=== PATIENT | male | born 1945 | race American Indian/Alaskan Native ===

== ENCOUNTER 2016-03-21 19:08 | Emergency (ER) | payer MEDICARE, OTHER ==
[2016-03-21 20:53] LABS: Bacteria,Urine 1+ /HPF (Negative); Bilirubin,Urine NEG (Negative); Blood,Urine MOD (Negative); Ketones,Urine NEG (Negative); Leukocyte Esterase,Urine NEG (Negative); Mucus,Urine FEW /HPF; Nitrite,Urine NEG (Negative); WBC,Urine < 1.0 /HPF (0.0-6.0)
[2016-03-21 21:00] LABS: Basophils % (Auto) 0.6 % (0.0-1.8); Eosinophils % (Auto) 0.3 % (0.0-4.3); Hematocrit 40.5 % (35.5-45.6); Hemoglobin 13.6 gm/dl (11.8-15.2); Mean Corpuscular HGB Conc 34 % (32-34); Mean Corpuscular Hemoglobin 30 pg (28-32); Mean Corpuscular Volume 89 fl (84-94); Platelet Count 182 K/mm3 (140-440); Red Blood Count 4.54 M/mm3 (3.65-5.03); Red Cell Distribution Width 13.5 % (13.2-15.2); White Blood Count 9.6 K/mm3 (4.5-11.0)
[2016-03-21 21:20] LABS: Anion Gap 15 mmol/L; BUN/Creatinine Ratio 12.85; Blood Urea Nitrogen 18 mg/dL (9-20); Carbon Dioxide 29 mmol/L (22-30); Chloride 96.3 mmol/L (98-107); Glucose 114 mg/dL (75-100); Potassium 4.4 mmol/L (3.6-5.0); Sodium 136 mmol/L (137-145)
[2016-03-21 21:58] LABS: Creatine Kinase MB < 1.0 ng/mL (0.0-4.0)
[2016-03-21 21:59] LABS: Alanine Aminotransferase 9 units/L (7-56); Albumin 3.8 g/dL (3.9-5); Albumin/Globulin Ratio 1.5 %; Alkaline Phosphatase 61 units/L (35-129); Bilirubin,Total 0.4 mg/dL (0.1-1.2); Creatine Kinase 117 units/L (55-170); Total Protein 6.3 g/dL (6.3-8.2)
[2016-03-21 22:02] LABS: Bilirubin,Direct < 0.2 mg/dL (0-0.2); Bilirubin,Indirect 0.2 mg/dL
--- NOTE | 2016-03-22 01:12 | Emergency Department Report ---
- General Chief complaint: Weakness Stated complaint: WEAKNESS Source: patient Mode of arrival: Stretcher Limitations: No Limitations - History of Present Illness Initial comments: 71-year-old male with past medical history of CABG, hypertension, dementia, seizures presents to the hospital complains of generalized weakness feeling today. Patient was at a dinner at his adult daycare center when he was too weak to stand up. Patient states he had weakness to bilateral legs. EMS reported a fever 102 prior to arrival however patient's temp 99.6 here without any medical intervention in route. Patient complained of sore throat today. Occasional dysuria reported. No reports of cough, chest pain, shortness of breath, nausea, vomiting, diarrhea, melena, focal numbness/weakness, or decreased by mouth intake. Patient does state he has been suffering from constipation intermittently. Pain free and at baseline Severity scale (0 -10): 0 - Related Data Home Medications Medication Instructions Recorded Confirmed Last Taken Aspirin [Aspirin BABY CHEW TAB] 81 mg PO QDAY 12/29/13 03/21/16 1 Day Ago 81 Atorvastatin [Lipitor] 80 mg PO QHS 12/29/13 03/21/16 1 Day Ago 80 Clopidogrel [Plavix] 75 mg PO QDAY 12/29/13 03/21/16 1 Day Ago [address] [Gilmar Heck] 1 gm PO DAILY 12/29/13 03/21/16 1 Day Ago 1 Ezetimibe [Zetia] 10 mg PO QDAY 12/29/13 03/21/16 1 Day Ago 10 amLODIPine [Norvasc] 10 mg PO DAILY 12/29/13 03/21/16 1 Day Ago 10 ISOSORBIDE MONOnitrate [Imdur ER] 60 mg PO QDAY 01/22/15 03/21/16 1 Day Ago 60 Lisinopril [Zestril TAB] 10 mg PO QDAY 01/22/15 03/21/16 1 Day Ago 10 Metoprolol [Lopressor TAB] 25 mg PO QDAY 01/22/15 03/21/16 1 Day Ago 25 Tamsulosin [Flomax] 0.4 mg PO QDAY 01/22/15 03/21/16 1 Day Ago 0.4 levETIRAcetam [Keppra TAB] 500 mg PO BID 01/22/15 03/21/16 1 Day Ago 500 Finasteride [Proscar] 5 mg PO QDAY 03/21/16 03/21/16 1 Day Ago 5 Allergies Allergy/AdvReac Type Severity Reaction Status Date / Time No Known Allergies Allergy Verified 03/11/14 15:43 ED Review of Systems ROS: Stated complaint: WEAKNESS Other details as noted in HPI Comment: All other systems reviewed and negative Other: Constitutional: + fever Eyes: Legally blind ENT: As per HPI Neck: Denies pain Respiratory: Denies cough wheezing shortness of breath Cardiovascular: Denies chest pain, palpitations, syncope GI: Denies abdominal pain, nausea, vomiting, diarrhea, : occ dysuria Musculoskeletal: Denies back pain Skin: Denies rash, lesions, erythema Neurologic: Denies headache ED Past Medical Hx - Past Medical History Previous Medical History?: Yes Hx Hypertension: Yes Hx Seizures: Yes (negative EEG per stepson) Hx Psychiatric Treatment: Yes (depression) Additional medical history: cad, high cholesterol, hearing loss, dementia. Enlarged prostate. 4 - Surgical History Hx Open Heart Surgery: Yes Additional Surgical History: eye surgery - Social History Smoking Status: Never Smoker Substance Use Type: None - Medications Home Medications: Home Medications Medication Instructions Recorded Confirmed Last Taken Type Aspirin [Aspirin BABY CHEW TAB] 81 mg PO QDAY 12/29/13 03/21/16 1 Day Ago History 81 Atorvastatin [Lipitor] 80 mg PO QHS 12/29/13 03/21/16 1 Day Ago History 80 Clopidogrel [Plavix] 75 mg PO QDAY 12/29/13 03/21/16 1 Day Ago History 75 Divalproex [Gilmar Heck] 1 gm PO DAILY 12/29/13 03/21/16 1 Day Ago History 1 Ezetimibe [Zetia] 10 mg PO QDAY 12/29/13 03/21/16 1 Day Ago History 10 amLODIPine [Norvasc] 10 mg PO DAILY 12/29/13 03/21/16 1 Day Ago History 10 ISOSORBIDE MONOnitrate [Imdur ER] 60 mg PO QDAY 01/22/15 03/21/16 1 Day Ago History 60 Lisinopril [Zestril TAB] 10 mg PO QDAY 01/22/15 03/21/16 1 Day Ago History 10 Metoprolol [Lopressor TAB] 25 mg PO QDAY 01/22/15 03/21/16 1 Day Ago History 25 Tamsulosin [Flomax] 0.4 mg PO QDAY 01/22/15 03/21/16 1 Day Ago History 0.4 levETIRAcetam [Keppra TAB] 500 mg PO BID 01/22/15 03/21/16 1 Day Ago History 500 Finasteride [Proscar] 5 mg PO QDAY 03/21/16 03/21/16 1 Day Ago History 5 ED Physical Exam - General Limitations: No Limitations - Other Other exam information: General: No limitations, patient is alert in no acute distress Head exam: Atraumatic, normocephalic ENT: Mildly or exudate at the right upper tonsil area without edema. Uvula midline Neck exam: Normal inspection, full range of motion, no meningismus nontender Respiratory exam: Clear to auscultation bilateral, no wheezes, rales, crackles Cardiovascular: Normal rate and rhythm Abdomen: Soft, nondistended, and nontender, with normal bowel sounds, no rebound, or guarding Extremity: Full range of motion normal inspection no deformity Back: Normal Inspection, full range of motion, no tenderness Neurologic: Alert, cranial nerves intact, no motor or sensory deficit. Psychiatric: normal affect, normal mood Skin: Warm, dry, intact ED Course Vital Signs 03/21/16 03/21/16 03/21/16 20:04 20:26 22:11 Temperature 99.6 F Pulse Rate 99 H 95 H 80 Respiratory 18 18 18 Rate Blood Pressure 125/74 Blood Pressure 125/74 145/85 135/80 [Left] O2 Sat by Pulse 97 97 97 Oximetry 03/22/16 00:57 Temperature Pulse Rate 88 Respiratory 16 Rate Blood Pressure Blood Pressure 138/78 [Left] O2 Sat by Pulse 99 Oximetry - Reevaluation(s) Reevaluation #1: 03/22/16 01:15 Patient was able to ambulate in the ED and he reports feeling much better 03/22/16 01:15 ED Medical Decision Making - Lab Data Result diagrams: 03/21/16 20:34 03/21/16 20:34 Lab Results 03/21/16 03/21/16 03/21/16 Range/Units 20:34 20:34 20:37 WBC 9.6 (4.5-11.0) K/mm3 RBC 4.54 (3.65-5.03) M/mm3 Hgb 13.6 (11.8-15.2) gm/dl Hct 40.5 (35.5-45.6) % MCV 89 (84-94) fl MCH 30 (28-32) pg MCHC 34 (32-34) % RDW 13.5 (13.2-15.2) % Plt Count 182 (140-440) K/mm3 Lymph % (Auto) 9.3 L (13.4-35.0) % [place] % (Auto) 10.9 H (0.0-7.3) % Eos % (Auto) 0.3 (0.0-4.3) % Baso % (Auto) 0.6 (0.0-1.8) % Lymph # 0.9 L (1.2-5.4) K/mm3 [place] # 1.0 H (0.0-0.8) K/mm3 Eos # 0.0 (0.0-0.4) K/mm3 Baso # 0.1 (0.0-0.1) K/mm3 Seg Neutrophils % 78.9 H (40.0-70.0) % Seg Neutrophils # 7.6 (1.8-7.7) K/mm3 Sodium 136 L (137-145) mmol/L Potassium 4.4 (3.6-5.0) mmol/L Chloride 96.3 L (98-107) mmol/L Carbon Dioxide 29 (22-30) mmol/L Anion Gap 15 mmol/L BUN 18 (9-20) mg/dL Creatinine 1.4 (0.8-1.5) mg/dL Estimated GFR > 60 ml/min BUN/Creatinine Ratio 12.85 % Glucose 114 H (75-100) mg/dL Calcium 9.0 (8.4-10.2) mg/dL Magnesium (1.7-2.3) mg/dL Total Bilirubin (0.1-1.2) mg/dL Direct Bilirubin (0-0.2) mg/dL Indirect Bilirubin mg/dL AST (5-40) units/L ALT (7-56) units/L Alkaline Phosphatase (35-129) units/L Total Creatine Kinase (55-170) units/L CK-MB (CK-2) (0.0-4.0) ng/mL CK-MB (CK-2) Rel Index (0-4) Troponin T (0.00-0.029) ng/mL Total Protein (6.3-8.2) g/dL Albumin (3.9-5) g/dL Albumin/Globulin Ratio % TSH (0.270-4.200) mlU/mL Free T4 (0.76-1.46) ng/dL Urine Color Yellow (Yellow) Urine Turbidity Clear (Clear) Urine pH 7.0 (5.0-7.0) Ur Specific Josephine 1.019 (1.003-1.030) Urine Protein 30 mg/dl (Negative) mg/dL Urine Glucose (UA) Neg (Negative) mg/dL Urine Ketones Neg (Negative) mg/dL Urine Blood Mod (Negative) Urine Nitrite Neg (Negative) Urine Bilirubin Neg (Negative) Urine Urobilinogen 4.0 (<2.0) mg/dL Ur Leukocyte Esterase Neg (Negative) Urine WBC (Auto) < 1.0 (0.0-6.0) /HPF Urine RBC (Auto) 49.0 (0.0-6.0) /HPF U Epithel Cells (Auto) 1.0 (0-13.0) /HPF Urine Bacteria (Auto) 1+ (Negative) /HPF Hyaline Casts 1 /LPF Urine Mucus Few /HPF 03/21/16 03/21/16 03/21/16 Range/Units 21:23 21:29 21:29 WBC (4.5-11.0) K/mm3 RBC (3.65-5.03) M/mm3 Hgb (11.8-15.2) gm/dl Hct (35.5-45.6) % MCV (84-94) fl MCH (28-32) pg MCHC (32-34) % RDW (13.2-15.2) % Plt Count (140-440) K/mm3 Lymph % (Auto) (13.4-35.0) % [place] % (Auto) (0.0-7.3) % Eos % (Auto) (0.0-4.3) % Baso % (Auto) (0.0-1.8) % Lymph # (1.2-5.4) K/mm3 [place] # (0.0-0.8) K/mm3 Eos # (0.0-0.4) K/mm3 Baso # (0.0-0.1) K/mm3 Seg Neutrophils % (40.0-70.0) % Seg Neutrophils # (1.8-7.7) K/mm3 Sodium (137-145) mmol/L Potassium (3.6-5.0) mmol/L Chloride (98-107) mmol/L Carbon Dioxide (22-30) mmol/L Anion Gap mmol/L BUN (9-20) mg/dL Creatinine (0.8-1.5) mg/dL Estimated GFR ml/min BUN/Creatinine Ratio % Glucose (75-100) mg/dL Calcium (8.4-10.2) mg/dL Magnesium 1.8 (1.7-2.3) mg/dL Total Bilirubin 0.4 (0.1-1.2) mg/dL Direct Bilirubin < 0.2 (0-0.2) mg/dL Indirect Bilirubin 0.2 mg/dL AST 16 (5-40) units/L ALT 9 (7-56) units/L Alkaline Phosphatase 61 (35-129) units/L Total Creatine Kinase (55-170) units/L CK-MB (CK-2) (0.0-4.0) ng/mL CK-MB (CK-2) Rel Index (0-4) Troponin T (0.00-0.029) ng/mL Total Protein 6.3 (6.3-8.2) g/dL Albumin 3.8 L (3.9-5) g/dL Albumin/Globulin Ratio 1.5 % TSH 1.160 (0.270-4.200) mlU/mL Free T4 1.02 (0.76-1.46) ng/dL Urine Color (Yellow) Urine Turbidity (Clear) Urine pH (5.0-7.0) Ur Specific Josephine (1.003-1.030) Urine Protein (Negative) mg/dL Urine Glucose (UA) (Negative) mg/dL Urine Ketones (Negative) mg/dL Urine Blood (Negative) Urine Nitrite (Negative) Urine Bilirubin (Negative) Urine Urobilinogen (<2.0) mg/dL Ur Leukocyte Esterase (Negative) Urine WBC (Auto) (0.0-6.0) /HPF Urine RBC (Auto) (0.0-6.0) /HPF U Epithel Cells (Auto) (0-13.0) /HPF Urine Bacteria (Auto) (Negative) /HPF Hyaline Casts /LPF Urine Mucus /HPF 03/21/16 Range/Units 21:29 WBC (4.5-11.0) K/mm3 RBC (3.65-5.03) M/mm3 Hgb (11.8-15.2) gm/dl Hct (35.5-45.6) % MCV (84-94) fl MCH (28-32) pg MCHC (32-34) % RDW (13.2-15.2) % Plt Count (140-440) K/mm3 Lymph % (Auto) (13.4-35.0) % [place] % (Auto) (0.0-7.3) % Eos % (Auto) (0.0-4.3) % Baso % (Auto) (0.0-1.8) % Lymph # (1.2-5.4) K/mm3 [place] # (0.0-0.8) K/mm3 Eos # (0.0-0.4) K/mm3 Baso # (0.0-0.1) K/mm3 Seg Neutrophils % (40.0-70.0) % Seg Neutrophils # (1.8-7.7) K/mm3 Sodium (137-145) mmol/L Potassium (3.6-5.0) mmol/L Chloride (98-107) mmol/L Carbon Dioxide (22-30) mmol/L Anion Gap mmol/L BUN (9-20) mg/dL Creatinine (0.8-1.5) mg/dL Estimated GFR ml/min BUN/Creatinine Ratio % Glucose (75-100) mg/dL Calcium (8.4-10.2) mg/dL Magnesium (1.7-2.3) mg/dL Total Bilirubin (0.1-1.2) mg/dL Direct Bilirubin (0-0.2) mg/dL Indirect Bilirubin mg/dL AST (5-40) units/L ALT (7-56) units/L Alkaline Phosphatase (35-129) units/L Total Creatine Kinase 117 (55-170) units/L CK-MB (CK-2) < 1.0 (0.0-4.0) ng/mL CK-MB (CK-2) Rel Index 0.8 (0-4) Troponin T < 0.010 (0.00-0.029) ng/mL Total Protein (6.3-8.2) g/dL Albumin (3.9-5) g/dL Albumin/Globulin Ratio % TSH (0.270-4.200) mlU/mL Free T4 (0.76-1.46) ng/dL Urine Color (Yellow) Urine Turbidity (Clear) Urine pH (5.0-7.0) Ur Specific Josephine (1.003-1.030) Urine Protein (Negative) mg/dL Urine Glucose (UA) (Negative) mg/dL Urine Ketones (Negative) mg/dL Urine Blood (Negative) Urine Nitrite (Negative) Urine Bilirubin (Negative) Urine Urobilinogen (<2.0) mg/dL Ur Leukocyte Esterase (Negative) Urine WBC (Auto) (0.0-6.0) /HPF Urine RBC (Auto) (0.0-6.0) /HPF U Epithel Cells (Auto) (0-13.0) /HPF Urine Bacteria (Auto) (Negative) /HPF Hyaline Casts /LPF Urine Mucus /HPF flu neg strep neg - EKG Data -: EKG Interpreted by Me (nsr rate 78, nonspecific t abnl) - EKG Data When compared to previous EKG there are: no significant change (compared to ) - Radiology Data Radiology results: image reviewed (cxr:no acute findings) - Medical Decision Making Stable in the ED and reports feeling better. No focal neurologic deficit no signs of infection with normal lab work, EKG, and cardiac enzymes. Patient tolerated ambulation in the ED this at his baseline. He was provided Keppra 500 mg since he takes at home and missed his evening dose while being in the ED to prevent seizure activity. Patient we discharged home. Awaiting his daughter 's arrival. She plans to come about 5:30. Case was discussed with her and she is comfortable with the plan to take him home and will continue to monitor. - Differential Diagnosis uti, pneumonia, viral syndrome, dehydration, anemia Critical Care Time: No Critical care attestation.: If time is entered above; I have spent that time in minutes in the direct care of this critically ill patient, excluding procedure time. ED Disposition Clinical Impression: Dementia, Weakness Disposition: DISCHARGED TO HOME OR SELFCARE Is pt being admited?: No Does the pt Need Aspirin: No Condition: Stable Instructions: Weakness (ED) Additional Instructions: Continue your current meds. Return if symptoms worsen. Follow up with your doctor Referrals: PRIMARY CARE, [Primary Care Provider] - 2-3 Days Time of Disposition: 01:37
[2016-03-22] MEDS ORDERED: KEPPRA PO ONE (01:21)
[2016-03-22 05:27] VITALS: BP 146/91
--- NOTE | 2016-03-22 09:47 | XRay Report ---
PORTABLE CHEST: INDICATION: Fever. COMPARISON: 12/29/2013 FINDINGS: Portable, frontal chest radiograph demonstrates stable cardiomediastinal silhouette, mild aortic knob calcifications, post CABG changes, clear lungs and demineralized bones with few degenerative changes. EKG leads. CONCLUSION: No acute disease, stable. Thank you for the opportunity to participate in this patient's care.
== END 2016-03-22 01:38 | disposition home or self-care (01) ==
LOC: ED 19:08
DX: R53.1 Weakness (principal); F03.90 Unspecified dementia, unspecified severity, without behavioral disturbance, psychotic disturbance, mood disturbance, and anxiety; I10 Essential (primary) hypertension; E78.00 Pure hypercholesterolemia, unspecified
CPT/HCPCS: 36415; 71010; 80048; 80074; 81001; 82550; 82553; 83735; 84439; 84443; 84484; 85025; 87116; 87400; 87430; 93005; 93010

== ENCOUNTER 2020-10-15 22:48 | Inpatient (IN) | payer OTHER, MEDICARE ==
[2020-10-15] MEDS ORDERED: dexAMETHasone 4 MG/ML VIAL IV ONE (23:23)
--- NOTE | 2020-10-15 23:25 | Event Note ---
Date: 10/15/20 The patient was evaluated in the emergency department for symptoms described in the history of present illness. He/she was evaluated in the context of the global COVID-19 pandemic, which necessitated consideration that the patient might be at risk for infection with the virus that causes COVID-19. Institutional protocols and algorithms that pertain to the evaluation of patients at risk for COVID-19 are in a state of rapid change based on information released by regulatory bodies including the CDC and federal and state organizations. These policies and algorithms were followed during the patient's care in the emergency department. Please note that these policies, procedures and recommendations changed on a rapid basis. EMS documentation not available at time of chart dictation This is a 75-year-old gentleman presenting with symptomatic Covid. He complains of cough, weakness, shortness of breath. He is not vaccinated. Apparently, he is a [facility] patient. He was given trial of ambulation, became very symptomatic, O2 sat desaturated to 67%, and became very tachycardic, with a heart rate of 122 bpm. We will contact [facility]. Place patient in isolation, order appropriate Covid labs, steroids, this patient will require admission for symptomatic Covid and acute hypoxic respiratory failure. Discussed with [facility] physician, Dr. Morales. He advises this patient had a positive Covid test yesterday. He advises that this patient has authorization to be admitted to this hospital.
--- NOTE | 2020-10-15 23:53 | XRay Report ---
CHEST 1 VIEW 10/15/2020 10:44 PM INDICATION / CLINICAL INFORMATION: Dyspnea. COMPARISON: None available. FINDINGS: SUPPORT DEVICES: None. HEART / MEDIASTINUM: No significant abnormality. LUNGS / PLEURA: Mild increased interstitial prominence and opacities in the lower lungs No pneumothor ax. Signer Name: Rolly Stout MD Signed: 10/15/2020 11:48 PM Workstation Name: [id number]
[2020-10-15 23:54] LABS: Basophils % (Auto) 0.4 % (0.0-1.8); Hemoglobin 15.8 gm/dl (11.8-15.2); Lymphocytes # (Auto) 0.5 K/mm3 (1.2-5.4); Lymphocytes % (Auto) 7.4 % (13.4-35.0); Mean Corpuscular HGB Conc 34 % (32-34); Mean Corpuscular Volume 89 fl (84-94); Monocytes # (Auto) 0.8 K/mm3 (0.0-0.8); Monocytes % (Auto) 13.4 % (0.0-7.3); Platelet Count 198 K/mm3 (140-440); Red Blood Count 5.17 M/mm3 (3.65-5.03); Red Cell Distribution Width 13.7 % (13.2-15.2)
[2020-10-16 00:04] LABS: INR 1.02 (0.87-1.13)
[2020-10-16 00:05] LABS: Partial Thromboplastin Time 33.7 Sec. (24.2-36.6)
[2020-10-16 00:11] LABS: Albumin 4.3 g/dL (3.9-5); Calcium 9.2 mg/dL (8.4-10.2)
[2020-10-16] MEDS ORDERED: cefTRIAXone/NS 1 GM/50 ML 1 GM/50 ML BAG IV ONE ×2 (00:15→03:15)
[2020-10-16] MEDS ORDERED: SODIUM CHLORIDE 0.9% 500 ML 500 ML IV ONE ×2 (00:15→03:15)
[2020-10-16] MEDS ORDERED: AZITHROMYCIN/NS 500 MG/250 ML 500 MG/250 ML BAG IV ONE (00:15)
--- NOTE | 2020-10-16 00:17 | Emergency Department Report ---
ED General Adult HPI - General Chief complaint: Weakness Stated complaint: WEAKNESS PUI?: Yes Source: patient, EMS (Verbal report received from emergency medical services. EMS documentation not available at time of chart dictation ), RN notes reviewed, old records reviewed Mode of arrival: Stretcher Limitations: Physical Limitation - History of Present Illness Initial comments: The patient was evaluated in the emergency department for symptoms described in the history of present illness. He/she was evaluated in the context of the global COVID-19 pandemic, which necessitated consideration that the patient might be at risk for infection with the virus that causes COVID-19. Institutional protocols and algorithms that pertain to the evaluation of patients at risk for COVID-19 are in a state of rapid change based on information released by regulatory bodies including the CDC and federal and state organizations. These policies and algorithms were followed during the patient's care in the emergency department. Please note that these policies, procedures and recommendations changed on a rapid basis. Primary CARE doctor: [facility]. The patient is a 75-year-old gentleman, who is not vaccinated against COVID-19, who tested positive for COVID-19 at an outpatient [place] facility, with other past medical history including seizure, hypertension, dementia, and CAD. He is referred to the emergency room by [facility] because of symptomatic Covid. The patient complains of weakness, shortness of breath, malaise, fatigue, body aches. The patient ambulates with a walker and with a cane. He also endorses dysuria. He reports significant weakness, and difficulty ambulating without assistance. EMS reports to myself that the patient is hypoxic in the field, requiring 3 L of supplemental oxygen, with a normal Accu-Chek, and they also endorse that the patient has a blood pressure of 170 systolic. Patient and EMS tell me that symptoms have been going on for the past couple days. -: Gradual, days(s) Consistency: constant Improves with: rest Worsens with: movement - Related Data Home Medications Medication Instructions Recorded Confirmed Last Taken Aspirin [Aspirin BABY CHEW TAB] 81 mg PO QDAY 12/29/13 03/21/16 1 Day Ago ~03/20/16 81 Atorvastatin [Lipitor] 80 mg PO QHS 12/29/13 03/21/16 1 Day Ago ~03/20/16 80 Clopidogrel [Plavix] 75 mg PO QDAY 12/29/13 03/21/16 1 Day Ago ~03/20/16 75 Divalproex [Gilmar Heck] 1 gm PO DAILY 12/29/13 03/21/16 1 Day Ago ~03/20/16 1 Ezetimibe [Zetia] 10 mg PO QDAY 12/29/13 03/21/16 1 Day Ago ~03/20/16 10 amLODIPine 10 mg PO DAILY 12/29/13 03/21/16 1 Day Ago ~03/20/16 10 ISOSORBIDE MONOnitrate [Imdur ER] 60 mg PO QDAY 01/22/15 03/21/16 1 Day Ago ~03/20/16 60 Metoprolol [Lopressor TAB] 25 mg PO QDAY 01/22/15 03/21/16 1 Day Ago ~03/20/16 25 Tamsulosin [Flomax] 0.4 mg PO QDAY 01/22/15 03/21/16 1 Day Ago ~03/20/16 0.4 levETIRAcetam [Keppra TAB] 500 mg PO BID 01/22/15 03/21/16 1 Day Ago ~03/20/16 500 lisinopriL [Zestril TAB] 10 mg PO QDAY 01/22/15 03/21/16 1 Day Ago ~03/20/16 10 Finasteride [Proscar] 5 mg PO QDAY 03/21/16 03/21/16 1 Day Ago ~03/20/16 5 Allergies Allergy/AdvReac Type Severity Reaction Status Date / Time No Known Allergies Allergy Verified 03/11/14 15:43 ED Review of Systems ROS: Stated complaint: WEAKNESS Other details as noted in HPI Constitutional: malaise, weakness Eyes: denies: eye discharge ENT: congestion Respiratory: cough, shortness of breath, SOB with exertion, SOB at rest Cardiovascular: denies: chest pain Gastrointestinal: denies: abdominal pain Genitourinary: dysuria Musculoskeletal: arthralgia, myalgia Neurological: weakness ED Past Medical Hx - Past Medical History Hx Hypertension: Yes Hx Seizures: Yes (negative EEG per stepson) Hx Psychiatric Treatment: Yes (depression) Additional medical history: cad, high cholesterol, hearing loss, dementia. Enlarged prostate. 4 - Surgical History Hx Open Heart Surgery: Yes Additional Surgical History: eye surgery - Social History Smoking Status: Never Smoker Substance Use Type: None - Medications Home Medications: Home Medications Medication Instructions Recorded Confirmed Last Taken Type Aspirin [Aspirin BABY CHEW TAB] 81 mg PO QDAY 12/29/13 03/21/16 1 Day Ago History ~03/20/16 81 Atorvastatin [Lipitor] 80 mg PO QHS 12/29/13 03/21/16 1 Day Ago History ~03/20/16 80 Clopidogrel [Plavix] 75 mg PO QDAY 12/29/13 03/21/16 1 Day Ago History ~03/20/16 75 Divalproex [Depakojeri Dr] 1 gm PO DAILY 12/29/13 03/21/16 1 Day Ago History ~03/20/16 1 Ezetimibe [Zetia] 10 mg PO QDAY 12/29/13 03/21/16 1 Day Ago History ~03/20/16 10 amLODIPine 10 mg PO DAILY 12/29/13 03/21/16 1 Day Ago History ~03/20/16 10 ISOSORBIDE MONOnitrate [Imdur ER] 60 mg PO QDAY 01/22/15 03/21/16 1 Day Ago History ~03/20/16 60 Metoprolol [Lopressor TAB] 25 mg PO QDAY 01/22/15 03/21/16 1 Day Ago History ~03/20/16 25 Tamsulosin [Flomax] 0.4 mg PO QDAY 01/22/15 03/21/16 1 Day Ago History ~03/20/16 0.4 levETIRAcetam [Keppra TAB] 500 mg PO BID 01/22/15 03/21/16 1 Day Ago History ~03/20/16 500 lisinopriL [Zestril TAB] 10 mg PO QDAY 01/22/15 03/21/16 1 Day Ago History ~03/20/16 10 Finasteride [Proscar] 5 mg PO QDAY 03/21/16 03/21/16 1 Day Ago History ~03/20/16 5 ED Physical Exam - General Limitations: Physical Limitation General appearance: alert - Head Head exam: Present: atraumatic, normocephalic - Eye Eye exam: Present: normal appearance - ENT ENT exam: Present: normal exam, mucous membranes moist, normal external ear exam - Neck Neck exam: Present: normal inspection, full ROM - Respiratory Respiratory exam: Present: respiratory distress, other (Pulmonary auscultation not performed secondary to lack of disposable stethoscope). Absent: stridor - Cardiovascular Cardiovascular Exam: Present: other (Cardiac auscultation not performed secondary to lack of disposable stethoscope) - Rectal Rectal exam: Present: deferred - Extremities Exam Extremities exam: Present: normal inspection, full ROM - Back Exam Back exam: Present: full ROM - Neurological Exam Neurological exam: Present: alert (The patient is awake and alert to name and location.), abnormal gait (The patient walks with an unsteady gait, and requires a 1 person assist), other (There is no facial droop. EOMI. Tongue midline. Moves 4 extremities spontaneously.) - Psychiatric Psychiatric exam: Present: flat affect - Skin Skin exam: Present: normal color ED Course Vital Signs 10/16/20 10/16/20 10/16/20 03:30 03:35 04:40 Temperature 100.0 F H Pulse Rate 84 Respiratory 24 24 Rate Blood Pressure Blood Pressure 122/88 [Left] O2 Sat by Pulse 100 100 Oximetry 10/16/20 10/16/20 10/16/20 08:34 11:09 11:57 Temperature 98.9 F 98.4 F Pulse Rate 74 88 80 Respiratory 19 19 Rate Blood Pressure 124/87 Blood Pressure 121/71 125/61 [Left] O2 Sat by Pulse 99 99 Oximetry 10/16/20 14:29 Temperature Pulse Rate 78 Respiratory 19 Rate Blood Pressure Blood Pressure 127/89 [Left] O2 Sat by Pulse 98 Oximetry - Reevaluation(s) Reevaluation #1: 10/16/20 00:22 Differential diagnosis, including but not limited to: COVID-19, dehydration, COVID-19 vaccination not performed, acute hypoxic respiratory failure Assessment and plan: 75-year-old gentleman, with confirmed outpatient COVID-19, with acute hypoxic respiratory failure, desaturating to 69% with trial of ambulation, requiring 3 L of supplemental oxygen. This patient meets criteria for admission and hospitalization secondary to hyponatremia, renal insufficiency, hypoxic respiratory failure. Hyponatremia is likely secondary to hypovolemic hyponatremia. This also may be associated with known COVID-19. [place] physician Dr. Morales has authorized this patient to be admitted to the medical service. Patient will be given 500 cc of normal saline. Given propensity for Covid patients to develop acute respiratory distress syndrome, I will withhold additional fluid bolus, and defer to inpatient team to further manage this patient's fluid requirements. He will also be given steroids and antibiotics empirically. EKG is pending at this time. Hospital physician, Dr. Blackburn to admit to [facility] 10/16/20 00:[address] courtesy consultation for infectious disease, defer to inpatient team to follow-up. ED Medical Decision Making - Lab Data Result diagrams: 10/15/20 23:29 10/15/20 23:29 Lab Results 10/15/20 10/15/20 10/15/20 Range/Units 23:29 23:29 23:29 WBC 6.2 (4.5-11.0) K/mm3 RBC 5.17 H (3.65-5.03) M/mm3 Hgb 15.8 H (11.8-15.2) gm/dl Hct 46.0 H (35.5-45.6) % MCV 89 (84-94) fl MCH 31 (28-32) pg MCHC 34 (32-34) % RDW 13.7 (13.2-15.2) % Plt Count 198 (140-440) K/mm3 Lymph % (Auto) 7.4 L (13.4-35.0) % Giles % (Auto) 13.4 H (0.0-7.3) % Eos % (Auto) 0.0 (0.0-4.3) % Baso % (Auto) 0.4 (0.0-1.8) % Lymph # (Auto) 0.5 L (1.2-5.4) K/mm3 Giles # (Auto) 0.8 (0.0-0.8) K/mm3 Eos # (Auto) 0.0 (0.0-0.4) K/mm3 Baso # (Auto) 0.0 (0.0-0.1) K/mm3 Seg Neutrophils % 78.8 H (40.0-70.0) % Seg Neutrophils # 4.9 (1.8-7.7) K/mm3 PT 14.0 (12.2-14.9) Sec. INR 1.02 (0.87-1.13) APTT 33.7 (24.2-36.6) Sec. D-Dimer 885.91 H (0-234) ng/mlDDU Sodium 129 L (137-145) mmol/L Potassium 4.5 (3.6-5.0) mmol/L Chloride 89.7 L (98-107) mmol/L Carbon Dioxide 26 (22-30) mmol/L Anion Gap 18 mmol/L BUN 16 (9-20) mg/dL Creatinine 1.9 H (0.8-1.3) mg/dL Estimated GFR 42 ml/min BUN/Creatinine Ratio 8 % Glucose 113 H (75-100) mg/dL Lactic Acid (0.7-2.0) mmol/L Calcium 9.2 (8.4-10.2) mg/dL Magnesium 2.00 (1.7-2.3) mg/dL Total Bilirubin 0.70 (0.1-1.2) mg/dL AST 61 H (5-40) units/L ALT 35 (7-56) units/L Alkaline Phosphatase 93 (35-129) units/L Total Protein 8.0 (6.3-8.2) g/dL Albumin 4.3 (3.9-5) g/dL Albumin/Globulin Ratio 1.2 % 10/15/20 Range/Units 23:29 WBC (4.5-11.0) K/mm3 RBC (3.65-5.03) M/mm3 Hgb (11.8-15.2) gm/dl Hct (35.5-45.6) % MCV (84-94) fl MCH (28-32) pg MCHC (32-34) % RDW (13.2-15.2) % Plt Count (140-440) K/mm3 Lymph % (Auto) (13.4-35.0) % Giles % (Auto) (0.0-7.3) % Eos % (Auto) (0.0-4.3) % Baso % (Auto) (0.0-1.8) % Lymph # (Auto) (1.2-5.4) K/mm3 Giles # (Auto) (0.0-0.8) K/mm3 Eos # (Auto) (0.0-0.4) K/mm3 Baso # (Auto) (0.0-0.1) K/mm3 Seg Neutrophils % (40.0-70.0) % Seg Neutrophils # (1.8-7.7) K/mm3 PT (12.2-14.9) Sec. INR (0.87-1.13) APTT (24.2-36.6) Sec. D-Dimer (0-234) ng/mlDDU Sodium (137-145) mmol/L Potassium (3.6-5.0) mmol/L Chloride (98-107) mmol/L Carbon Dioxide (22-30) mmol/L Anion Gap mmol/L BUN (9-20) mg/dL Creatinine (0.8-1.3) mg/dL Estimated GFR ml/min BUN/Creatinine Ratio % Glucose (75-100) mg/dL Lactic Acid 2.80 H* (0.7-2.0) mmol/L Calcium (8.4-10.2) mg/dL Magnesium (1.7-2.3) mg/dL Total Bilirubin (0.1-1.2) mg/dL AST (5-40) units/L ALT (7-56) units/L Alkaline Phosphatase (35-129) units/L Total Protein (6.3-8.2) g/dL Albumin (3.9-5) g/dL Albumin/Globulin Ratio % Vital Signs 10/16/20 10/16/20 10/16/20 03:30 03:35 04:40 Temperature 100.0 F H Pulse Rate 84 Respiratory 24 24 Rate Blood Pressure Blood Pressure 122/88 [Left] O2 Sat by Pulse 100 100 Oximetry 10/16/20 10/16/20 10/16/20 08:34 11:09 11:57 Temperature 98.9 F 98.4 F Pulse Rate 74 88 80 Respiratory 19 19 Rate Blood Pressure 124/87 Blood Pressure 121/71 125/61 [Left] O2 Sat by Pulse 99 99 Oximetry 10/16/20 14:29 Temperature Pulse Rate 78 Respiratory 19 Rate Blood Pressure Blood Pressure 127/89 [Left] O2 Sat by Pulse 98 Oximetry - EKG Data -: EKG Interpreted by [place] EKG shows normal: sinus rhythm Rate: tachycardia - EKG Data 10/16/20 00:44 EKG is interpreted at 12: 35 AM Sinus rhythm, tachycardia, rate 101 bpm. Left axis deviation, left anterior fascicular block, QTC within normal limits, motion artifact. Abnormal EKG, not a STEMI. - Radiology Data Radiology results: pending, report reviewed, image reviewed CHEST 1 VIEW 10/15/2020 10:44 PM INDICATION / CLINICAL INFORMATION: Dyspnea. COMPARISON: None available. FINDINGS: SUPPORT DEVICES: None. HEART / M EDIASTINUM: No significant abnormality. LUNGS / PLEURA: Mild increased interstitial prominence and opacities in the lower lungs No pneumothorax. Signer Name: Rolly Stout MD Signed: 10/15/2020 10:48 PM Workstation Name: [id number] Critical care attestation.: If time is entered above; I have spent that time in minutes in the direct care of this critically ill patient, excluding procedure time. ED Disposition Clinical Impression: Renal insufficiency, Acute respiratory failure with hypoxia, COVID-19 Disposition: 09 ADMITTED INPATIENT Is pt being admited?: Yes Does the pt Need Aspirin: No Condition: Fair
[2020-10-16] MEDS ORDERED: oxyCODONE /ACETAMINOPHEN 5-325MG TAB PO PRN (00:38)
[2020-10-16] MEDS ORDERED: ACETAMINOPHEN 325 MG TAB PO PRN (00:38)
[2020-10-16] MEDS ORDERED: ONDANSETRON 4 MG/2 ML INJ IV PRN (00:38)
[2020-10-16] MEDS ORDERED: HYDROmorphone 1 MG/1 ML INJ IV PRN (00:38)
[2020-10-16] MEDS ORDERED: ALBUTEROL 2.5 MG/3 ML NEBU IH PRN (00:38)
[2020-10-16] MEDS ORDERED: hydrALAZINE 20 MG/1 ML INJ IV PRN (00:41)
--- NOTE | 2020-10-16 00:47 | History and Physical Report ---
History of Present Illness Date of examination: 10/16/20 Date of admission: 10/16/20 Chief complaint: Weakness Shortness of breath History of present illness: 75 years old male with history of seizure hypertension dementia and CAD was brought to the hospital because of shortness of breath, weakness malaise fatigue and body ache. Patient is not vaccinated against COVID-19 but patient is test is positive for COVID-19 at an outpatient [place] facility. Patient is found hypoxic. Patient was given a trial of ambulation patient became very symptomatic O2 sat dropped to 67% and patient visit became very tachycardic with a heart rate of 122. Subsequently patient was brought to the emergency room by Her [place] facility because of symptomatic Covid. Patient normally ambulates with a walker and with a cane. Patient also endorses dysuria. Patient reports significant weakness and difficulty ambulating without assistance We are going to admit the patient as Covid pneumonia hypoxic respiratory failure. We will consult infectious disease and pulmonary for evaluation Med rec is done. Advance discharge process is initiated Past History Past Medical History: CAD, hypertension, hyperlipidemia (Dementia and hearing loss, enlarged prostate), seizures, other (Depression) Medications and Allergies Allergies Allergy/AdvReac Type Severity Reaction Status Date / Time No Known Allergies Allergy Verified 03/11/14 15:43 Home Medications Medication Instructions Recorded Confirmed Last Taken Type Aspirin [Aspirin BABY CHEW TAB] 81 mg PO QDAY 12/29/13 03/21/16 1 Day Ago History ~03/20/16 81 Atorvastatin [Lipitor] 80 mg PO QHS 12/29/13 03/21/16 1 Day Ago History ~03/20/16 80 Clopidogrel [Plavix] 75 mg PO QDAY 12/29/13 03/21/16 1 Day Ago History ~03/20/16 75 Divalproex [Gilmar Heck] 1 gm PO DAILY 12/29/13 03/21/16 1 Day Ago History ~03/20/16 1 Ezetimibe [Zetia] 10 mg PO QDAY 12/29/13 03/21/16 1 Day Ago History ~03/20/16 10 amLODIPine 10 mg PO DAILY 12/29/13 03/21/16 1 Day Ago History ~03/20/16 10 ISOSORBIDE MONOnitrate [Imdur ER] 60 mg PO QDAY 01/22/15 03/21/16 1 Day Ago History ~03/20/16 60 Metoprolol [Lopressor TAB] 25 mg PO QDAY 01/22/15 03/21/16 1 Day Ago History ~03/20/16 25 Tamsulosin [Flomax] 0.4 mg PO QDAY 01/22/15 03/21/16 1 Day Ago History ~03/20/16 0.4 levETIRAcetam [Keppra TAB] 500 mg PO BID 01/22/15 03/21/16 1 Day Ago History ~03/20/16 500 lisinopriL [Zestril TAB] 10 mg PO QDAY 01/22/15 03/21/16 1 Day Ago History ~03/20/16 10 Finasteride [Proscar] 5 mg PO QDAY 03/21/16 03/21/16 1 Day Ago History ~03/20/16 5 Active Meds: Active Medications Azithromycin (Zithromax/Ns) 500 mg in 250 mls @ 250 mls/hr IV ONCE ONE; Protocol Stop: 10/16/20 01:14 Sodium Chloride (Nacl 0.9% 500 Ml) 500 mls @ 999 mls/hr IV ONCE ONE Stop: 10/16/20 00:45 Ceftriaxone Sodium (Rocephin/Ns 1 Gm/50 Ml) 1 gm in 50 mls @ 100 mls/hr IV ONCE ONE; Protocol Stop: 10/16/20 00:44 Review of Systems All systems: negative Constitutional: weakness, malaise Cardiovascular: shortness of breath, dyspnea on exertion Respiratory: cough, shortness of breath, dyspnea on exertion Musculoskeletal: myalgias, arthritis Exam - Constitutional General appearance: Present: no acute distress, well-nourished - EENT Eyes: Present: PERRL ENT: hearing intact, clear oral mucosa - Neck Neck: Present: supple, normal ROM - Respiratory Respiratory effort: normal Respiratory: bilateral: diminished - Cardiovascular Heart Sounds: Present: S1 & S2. Absent: rub, click - Extremities Extremities: pulses symmetrical, No edema Peripheral Pulses: within normal limits - Abdominal General gastrointestinal: Present: soft, non-tender, non-distended, normal bowel sounds Male genitourinary: Present: normal - Integumentary Integumentary: Present: clear, warm, dry - Musculoskeletal Musculoskeletal: gait normal, strength equal bilaterally - Psychiatric Psychiatric: appropriate mood/affect, intact judgment & insight - Neurologic Neurologic: CNII-XII intact, other (Patient is awake alert to name and location patient patient has abnormal gait. Patient walks with an unsteady gait and require a person assist) Results - Labs CBC & Chem 7: 10/15/20 23:29 10/15/20: Labs: Laboratory Last Values WBC 6.2 K/mm3 (4.5-11.0) 10/15/20: RBC 5.17 M/mm3 (3.65-5.03) H 10/15/20 23: Hgb 15.8 gm/dl (11.8-15.2) H 10/15/20: Hct 46.0 % (35.5-45.6) H 10/15/20: MCV 89 fl (84-94) 10/15/20: MCH 31 pg (28-32) 10/15/20: MCHC 34 % (32-34) 10/15/20: RDW 13.7 % (13.2-15.2) 10/15/20: Plt Count 198 K/mm3 (140-440) 10/15/20: Lymph % (Auto) 7.4 % (13.4-35.0) L 10/15/20: Whitman % (Auto) 13.4 % (0.0-7.3) H 10/15/20: Eos % (Auto) 0.0 % (0.0-4.3) 10/15/20: Baso % (Auto) 0.4 % (0.0-1.8) 10/15/20: Lymph # (Auto) 0.5 K/mm3 (1.2-5.4) L 10/15/20: Whitman # (Auto) 0.8 K/mm3 (0.0-0.8) 10/15/20: Eos # (Auto) 0.0 K/mm3 (0.0-0.4) 10/15/20: Baso # (Auto) 0.0 K/mm3 (0.0-0.1) 10/15/20: Seg Neutrophils % 78.8 % (40.0-70.0) H 10/15/20 23:29 Seg Neutrophils # 4.9 K/mm3 (1.8-7.7) 10/15/20 23: PT 14.0 Sec. (12.2-14.9) 10/15/20 23: INR 1.02 (0.87-1.13) 10/15/20 23: APTT 33.7 Sec. (24.2-36.6) 10/15/20 23:29 D-Dimer 885.91 ng/mlDDU (0-234) H 10/15/20 23:29 Sodium 129 mmol/L (137-145) L 10/15/20 23: Potassium 4.5 mmol/L (3.6-5.0) 10/15/20 23: Chloride 89.7 mmol/L (98-107) L 10/15/20 23: Carbon Dioxide 26 mmol/L (22-30) 10/15/20 23:29 Anion Gap 18 mmol/L 10/15/20 23:29 BUN 16 mg/dL (9-20) 10/15/20 23:29 Creatinine 1.9 mg/dL (0.8-1.3) H 10/15/20 23:29 Estimated GFR 42 ml/min 10/15/20 23: BUN/Creatinine Ratio 8 % 10/15/20 23: Glucose 113 mg/dL (75-100) H 10/15/20 23: Lactic Acid 2.80 mmol/L (0.7-2.0) H* 10/15/20 23: Calcium 9.2 mg/dL (8.4-10.2) 10/15/20 23: Magnesium 2.00 mg/dL (1.7-2.3) 10/15/20 23: Total Bilirubin 0.70 mg/dL (0.1-1.2) 10/15/20 23:29 AST 61 units/L (5-40) H 10/15/20 23:29 ALT 35 units/L (7-56) 10/15/20 23: Alkaline Phosphatase 93 units/L (35-129) 10/15/20 23:29 Total Protein 8.0 g/dL (6.3-8.2) 09/10/21 23:29 Albumin 4.3 g/dL (3.9-5) 10/15/20 23:29 Albumin/Globulin Ratio 1.2 % 10/15/20 23:29 - Imaging and Cardiology Chest x-ray: report reviewed Assessment and Plan VTE prophylaxis?: Chemical Plan of care discussed with patient/family: Yes - Patient Problems (1) Acute respiratory failure with hypoxia Status: Acute Plan to address problem: Admit the patient to the medical telemetry. Oxygen via nasal cannula 3 to per minute DuoNeb by nebulizer every 4 hours Rocephin 2 g IV daily. Zithromax 500 mg IV daily. Dexamethasone 6 mg IV daily. Vitamin C 500 mg p.o. twice daily and zinc and vitamin D. Follow Covid inflammatory marker. We also consult infectious disease and pulmonary for evaluation (2) CAD (coronary artery disease) Status: Acute Qualifiers: Coronary Disease-Associated Artery/Lesion type: bypass graft [place] vs. transplanted heart: [place] heart Associated angina: without angina Qualified Code(s): I25.810 - Atherosclerosis of coronary artery bypass graft(s) without a ngina pectoris Plan to address problem: Stable we will continue the home medication. We will continue Plavix 75 mg p.o. daily. Lipitor 80 mg p.o. daily. Aspirin 81 mg p.o. daily Lopressor 20 mg p.o. daily Imdur 60 mg p.o. daily (3) COVID-19 Status: Acute Plan to address problem: Oxygen via nasal cannula 3 to per minute DuoNeb by nebulizer every 4 hours Rocephin 2 g IV daily. Zithromax 500 mg IV daily. Dexamethasone 6 mg IV daily. Vitamin C 500 mg p.o. twice daily and zinc and vitamin D. Follow Covid inflammatory marker. We also consult infectious disease and pulmonary for evaluation (4) Hypertension Status: Acute Plan to address problem: Imdur 60 mg p.o. daily. Hydralazine 10 mill IV every 6 hours as needed we will continue the home medication. We will monitor the blood pressure closely (5) Renal insufficiency Status: Acute Plan to address problem: Avoid nephrotoxic drug. Renally dose medication. We will recheck CBC BMP in the morning (6) DVT prophylaxis Status: Acute Plan to address problem: Heparin 5000 units subcu every 8 hours for DVT prophylaxis. Pepcid 20 mg p.o. twice daily for GI prophylaxis. Patient is a full code
[2020-10-16 01:25] LABS: C-Reactive Protein 4.4 mg/dL (0.00-1.30)
[2020-10-16] MEDS ORDERED: dexAMETHasone 4 MG/ML VIAL IV ONE (03:15)
[2020-10-16] MEDS: HEPARIN 5,000 UNIT/1 ML VIAL SUB-Q SCH ×3 (07:05→21:20)
[2020-10-16] MEDS: IPRATROPIUM/ALBUTEROL SULFATE 3 ML AMPUL.NEB IH SCH ×3 (07:33→13:39)
--- NOTE | 2020-10-16 08:06 | Event Note ---
Date: 10/16/20 Patient seen and examined resting comfortably. Still with confusion and generalized weakness debility-pt/ot
[2020-10-16] MEDS ORDERED: FAMOTIDINE 20 MG TAB PO SCH (10:00)
[2020-10-16] MEDS ORDERED: DIVALPROEX DR 250 MG TAB PO SCH (10:00)
[2020-10-16] MEDS: FAMOTIDINE 10 MG TAB PO SCH ×2 (11:09→21:19)
[2020-10-16] MEDS: FINASTERIDE 5 MG TAB PO SCH (11:09)
[2020-10-16] MEDS: amLODIPine 10 MG TAB PO SCH (11:09)
[2020-10-16] MEDS: TAMSULOSIN 0.4 MG CAP PO SCH (11:09)
[2020-10-16] MEDS: EZETIMIBE 10 MG TAB PO SCH (11:09)
[2020-10-16] MEDS: METOPROLOL TARTRATE 25 MG TAB PO SCH (11:10)
[2020-10-16] MEDS: LISINOPRIL 10 MG TAB PO SCH (11:10)
[2020-10-16] MEDS: CLOPIDOGREL 75 MG TAB PO SCH (11:10)
[2020-10-16] MEDS: DIVALPROEX DR 500 MG TAB PO SCH (11:10)
[2020-10-16] MEDS: ASPIRIN 81 MG TAB CHEW PO SCH (11:10)
[2020-10-16] MEDS: levETIRAcetam 500 MG TAB PO SCH ×2 (11:11→21:19)
[2020-10-16] MEDS ORDERED: NON-FORMULARY EACH (Atorvastatin [Lipitor] 80 MG Tablet) PO SCH (22:00)
[2020-10-17] MEDS: IPRATROPIUM/ALBUTEROL SULFATE 3 ML AMPUL.NEB IH SCH ×3 (00:20→08:59)
[2020-10-17] MEDS: cefTRIAXone/NS 2 GM/100 ML 2 GM/100 ML BAG IV SCH (01:36)
[2020-10-17] MEDS: AZITHROMYCIN/NS 500 MG/250 ML 500 MG/250 ML BAG IV SCH (01:36)
[2020-10-17] MEDS ORDERED: dexAMETHasone 4 MG/ML VIAL IV SCH (03:00)
[2020-10-17 04:08] LABS: Hematocrit 36.7 % (35.5-45.6); Hemoglobin 12.9 gm/dl (11.8-15.2); Mean Corpuscular HGB Conc 35 % (32-34); Mean Corpuscular Volume 87 fl (84-94); Platelet Count 186 K/mm3 (140-440); Red Blood Count 4.19 M/mm3 (3.65-5.03); Red Cell Distribution Width 13.7 % (13.2-15.2)
[2020-10-17 04:26] LABS: Calcium 8.1 mg/dL (8.4-10.2)
[2020-10-17 05:06] LABS: Anisocytosis 1+; Total Cells Counted 100
[2020-10-17 05:07] LABS: Platelet Estimate Consistent w Auto
[2020-10-17] MEDS: HEPARIN 5,000 UNIT/1 ML VIAL SUB-Q SCH ×3 (06:47→21:39)
--- NOTE | 2020-10-17 07:07 | Progress Note ---
Assessment and Plan Assessment and plan: 75 years old male with history of seizure hypertension dementia and CAD was brought to the hospital because of shortness of breath, weakness malaise fatigue and body ache. Patient is not vaccinated against COVID-19 but patient is test is positive for COVID-19 at an outpatient [facility] facility. Patient is found hypoxic. Patient was given a trial of ambulation patient became very symptomatic O2 sat dropped to 67% and patient visit became very tachycardic with a heart rate of 122. Subsequently patient was brought to the emergency room by [facility] because of symptomatic Covid. Patient normally ambulates with a walker and with a cane. Patient also endorses dysuria. Patient reports significant weakness and difficulty ambulating without assistance We are going to admit the patient as Covid pneumonia hypoxic respiratory failure. We will consult infectious disease and pulmonary for evaluation Med rec is done. Advance discharge process is initiated (1) Acute respiratory failure with hypoxia Status: Acute Plan to address problem: Admit the patient to the medical telemetry. Oxygen via nasal cannula 3 to per minute DuoNeb by nebulizer every 4 hours Rocephin 2 g IV daily. Zithromax 500 mg IV daily. Dexamethasone 6 mg IV daily. Vitamin C 500 mg p.o. twice daily and zinc and vitamin D. Follow Covid inflammatory marker. We also consult infectious disease and pulmonary for evaluation (2) CAD (coronary artery disease) Status: Acute Qualifiers: Coronary Disease-Associated Artery/Lesion type: bypass graft [place] vs. tra nsplanted heart: [place] heart Associated angina: without angina Qualified Code(s): I25.810 - Atherosclerosis of coronary artery bypass graft(s) without angina pectoris Plan to address problem: Stable we will continue the home medication. We will continue Plavix 75 mg p.o. daily. Lipitor 80 mg p.o. daily. Aspirin 81 mg p.o. daily Lopressor 20 mg p.o. daily Imdur 60 mg p.o. daily (3) COVID-19 Status: Acute Plan to address problem: Oxygen via nasal cannula 3 to per minute DuoNeb by nebulizer every 4 hours Rocephin 2 g IV daily. Zithromax 500 mg IV daily. Dexamethasone 6 mg IV daily. Vitamin C 500 mg p.o. twice daily and zinc and vitamin D. Follow Covid inflammatory marker. We also consult infectious disease and pulmonary for evaluation (4) Hypertension Status: Acute Plan to address problem: Imdur 60 mg p.o. daily. Hydralazine 10 mill IV every 6 hours as needed we will continue the home medication. We will monitor the blood pressure closely (5) JIE with vasomotor nephropathy Status: Acute Plan to address problem: Avoid nephrotoxic drug. Renally dose medication. We will recheck CBC BMP in the morning (6) DVT prophylaxis Status: Acute Plan to address problem: Heparin 5000 units subcu every 8 hours for DVT prophylaxis. Pepcid 20 mg p.o. twice daily for GI prophylaxis. Patient is a full code 10/17: Patient remains with significant debility, renal function improving, awaiting Physical therapy evaluation and we still need exertion dyspnea. Continue steroids. History Interval history: Patient seen and examined, no new complaints, per nursing staff, patients saturation remains in the 98% range o 2 liters at rest Hospitalist Physical - Physical exam Narrative exam: - Constitutional General appearance: Present: no acute distress, well-nourished - EENT Eyes: Present: PERRL ENT: hearing intact, clear oral mucosa - Neck Neck: Present: supple, normal ROM - Respiratory Respiratory effort: normal Respiratory: bilateral: diminished - Cardiovascular Heart Sounds: Present: S1 & S2. Absent: rub, click - Extremities Extremities: pulses symmetrical, No edema Peripheral Pulses: within normal limits - Abdominal General gastrointestinal: Present: soft, non-tender, non-distended, normal bowel sounds Male genitourinary: Present: normal - Integumentary Integumentary: Present: clear, warm, dry - Musculoskeletal Musculoskeletal: gait normal, strength equal bilaterally - Psychiatric Psychiatric: appropriate mood/affect, intact judgment & insight - Neurologic Neurologic: CNII-XII intact, other (Patient is awake alert to name and location patient patient has abnormal gait. Patient walks with an unsteady gait and require a person assist) - Constitutional Vitals: Temp Pulse Resp BP Pulse Ox 97.4 F L 92 H 20 104/67 97 10/16/20 22:30 10/16/20 22:30 10/16/20 22:30 10/16/20 22:30 10/17/20 01:23 General appearance: Present: no acute distress, well-nourished Results - Labs CBC & Chem 7: 10/17/20 03:23 10/17/20 17:01 Labs: Laboratory Last Values WBC 3.5 K/mm3 (4.5-11.0) L 10/17/20 03:23 RBC 4.19 M/mm3 (3.65-5.03) 10/17/20 03:23 Hgb 12.9 gm/dl (11.8-15.2) 10/17/20 03:23 Hct 36.7 % (35.5-45.6) D 10/17/20 03:23 MCV 87 fl (84-94) 10/17/20 03:23 MCH 31 pg (28-32) 10/17/20 03:23 MCHC 35 % (32-34) H 10/17/20 03:23 RDW 13.7 % (13.2-15.2) 10/17/20 03:23 Plt Count 186 K/mm3 (140-440) 10/17/20 03:23 Lymph % (Auto) 7.4 % (13.4-35.0) L 10/15/20 23:29 [place] % (Auto) Rn Case Mgr 10/17/20 03:23 Eos % (Auto) 0.0 % (0.0-4.3) 10/15/20 23:29 Baso % (Auto) 0.4 % (0.0-1.8) 10/15/20 23:29 Lymph # (Auto) 0.5 K/mm3 (1.2-5.4) L 10/15/20 23:29 [place] # (Auto) 0.8 K/mm3 (0.0-0.8) 10/15/20 23:29 Eos # (Auto) 0.0 K/mm3 (0.0-0.4) 10/15/20 23:29 Baso # (Auto) 0.0 K/mm3 (0.0-0.1) 10/15/20 23:29 Add Manual Diff Complete 10/17/20 03:23 Total Counted 100 10/17/20 03:23 Seg Neutrophils % 78.8 % (40.0-70.0) H 10/15/20 23:29 Seg Neuts % (Manual) 80.0 % (40.0-70.0) H 10/17/20 03:23 Band Neutrophils % 1.0 % 10/17/20 03:23 Lymphocytes % (Manual) 10.0 % (13.4-35.0) L 10/17/20 03:23 Monocytes % (Manual) 9.0 % (0.0-7.3) H 10/17/20 03:23 Nucleated RBC % Not Reportable 10/17/20 03:23 Seg Neutrophils # 4.9 K/mm3 (1.8-7.7) 10/15/20 23:29 Seg Neutrophils # Man 2.8 K/mm3 (1.8-7.7) 10/17/20 03:23 Band Neutrophils # 0.0 K/mm3 10/17/20 03:23 Lymphocytes # (Manual) 0.4 K/mm3 (1.2-5.4) L 10/17/20 03:23 Abs React Lymphs (Man) 0.0 K/mm3 10/17/20 03:23 Monocytes # (Manual) 0.3 K/mm3 (0.0-0.8) 10/17/20 03:23 Eosinophils # (Manual) 0.0 K/mm3 (0.0-0.4) 10/17/20 03:23 Basophils # (Manual) 0.0 K/mm3 (0.0-0.1) 10/17/20 03:23 Metamyelocytes # 0.0 K/mm3 10/17/20 03:23 Myelocytes # 0.0 K/mm3 10/17/20 03:23 Promyelocytes # 0.0 K/mm3 10/17/20 03:23 Blast Cells # 0.0 K/mm3 10/17/20 03:23 WBC Morphology Not Reportable 10/17/20 03:23 Hypersegmented Neuts Not Reportable 10/17/20 03:23 Hyposegmented Neuts Not Reportable 10/17/20 03:23 Hypogranular Neuts Not Reportable 10/17/20 03:23 Smudge Cells Not Reportable 10/17/20 03:23 Toxic Granulation Not Reportable 10/17/20 03:23 Toxic Vacuolation Not Reportable 10/17/20 03:23 Dohle Bodies Not Reportable 10/17/20 03:23 Pelger-Huet Anomaly Not Reportable 10/17/20 03:23 Luisa Rods Not Reportable 10/17/20 03:23 Platelet Estimate Consistent w auto 10/17/20 03:23 Clumped Platelets Not Reportable 10/17/20 03:23 Plt Clumps, EDTA Not Reportable 10/17/20 03:23 Large Platelets Not Reportable 10/17/20 03:23 Giant Platelets Not Reportable 10/17/20 03:23 Platelet Satelliting Not Reportable 10/17/20 03:23 Plt Morphology Comment Not Reportable 10/17/20 03:23 RBC Morphology Not Reportable 10/17/20 03:23 Dimorphic RBCs Not Reportable 10/17/20 03:23 Polychromasia Not Reportable 10/17/20 03:23 Hypochromasia Not Reportable 10/17/20 03:23 Poikilocytosis Not Reportable 10/17/20 03:23 Anisocytosis 1+ 10/17/20 03:23 Microcytosis Not Reportable 10/17/20 03:23 Macrocytosis Not Reportable 10/17/20 03:23 Spherocytes Not Reportable 10/17/20 03:23 Pappenheimer Bodies Not Reportable 10/17/20 03:23 Sickle Cells Not Reportable 10/17/20 03:23 Target Cells Not Reportable 10/17/20 03:23 Tear Drop Cells Not Reportable 10/17/20 03:23 Ovalocytes Not Reportable 10/17/20 03:23 Helmet Cells Not Reportable 10/17/20 03:23 [place] Bodies Not Reportable 10/17/20 03:23 [place] Rings Not Reportable 10/17/20 03:23 [place] Cells Not Reportable 10/17/20 03:23 Bite Cells Not Reportable 10/17/20 03:23 Crenated Cell Not Reportable 10/17/20 03:23 Elliptocytes Not Reportable 10/17/20 03:23 Acanthocytes (Spur) Not Reportable 10/17/20 03:23 Rouleaux Not Reportable 10/17/20 03:23 Hemoglobin C Crystals Not Reportable 10/17/20 03:23 Schistocytes Not Reportable 10/17/20 03:23 Malaria parasites Not Reportable 10/17/20 03:23 [address] Bodies Not Reportable 10/17/20 03:23 Hem Pathologist Commnt No 10/17/20 03:23 PT 14.0 Sec. (12.2-14.9) 10/15/20 23:29 INR 1.02 (0.87-1.13) 10/15/20 23:29 APTT 33.7 Sec. (24.2-36.6) 10/15/20 23:29 D-Dimer 885.91 ng/mlDDU (0-234) H 10/15/20 23:29 Sodium 133 mmol/L (137-145) L 10/17/20 03:23 Potassium 4.7 mmol/L (3.6-5.0) 10/17/20 03:23 Chloride 97.2 mmol/L (98-107) L 10/17/20 03:23 Carbon Dioxide 27 mmol/L (22-30) 10/17/20 03:23 Anion Gap 14 mmol/L 10/17/20 03:23 BUN 22 mg/dL (9-20) H 10/17/20 03:23 Creatinine 1.5 mg/dL (0.8-1.3) H 10/17/20 03:23 Estimated GFR 55 ml/min 10/17/20 03:23 BUN/Creatinine Ratio 15 % 10/17/20 03:23 Glucose 136 mg/dL (75-100) H 10/17/20 03:23 POC Glucose 131 mg/dL (70-105) H 10/16/20 16:27 Lactic Acid 1.10 mmol/L (0.7-2.0) 10/16/20 04:00 Calcium 8.1 mg/dL (8.4-10.2) L 10/17/20 03:23 Magnesium 2.00 mg/dL (1.7-2.3) 10/15/20 23:29 Ferritin 578.4 ng/mL (30.0-300.0) H 10/15/20 23:29 Total Bilirubin 0.70 mg/dL (0.1-1.2) 10/15/20 23:29 AST 61 units/L (5-40) H 10/15/20 23:29 ALT 35 units/L (7-56) 10/15/20 23:29 Alkaline Phosphatase 93 units/L (35-129) 10/15/20 23:29 Lactate Dehydrogenase 289 units/L (91-180) H 10/15/20 23:29 C-Reactive Protein 4.40 mg/dL (0.00-1.30) H 10/15/20 23:29 Total Protein 8.0 g/dL (6.3-8.2) 10/15/20 23:29 Albumin 4.3 g/dL (3.9-5) 10/15/20 23:29 Albumin/Globulin Ratio 1.2 % 10/15/20 23:29 Procalcitonin 0.47 ng/mL (<0.15) 10/15/20 23:29 Coronavirus (PCR) Positive (Negative) A 10/16/20 Unknown Microbiology: Microbiology 10/15/20 23:29 Peripheral/Venous Blood Culture - Preliminary Culture in Progress 10/16/20 00:08 Peripheral/Venous Blood Culture - Preliminary Culture in Progress Mcknight/IV: Voiding Method Condom Catheter Active Medications - Current Medications Current Medications: Generic Name Dose Route Start Last Admin Trade Name Freq PRN Reason Stop Dose Admin Acetaminophen 650 mg 10/16/20 00:38 10/16/20 07:06 Acetaminophen 325 Mg Tab PO 650 mg Q4H PRN Administration Pain MILD(1-3)/Fever >100.5/CARB[place]O Albuterol 2.5 mg 10/16/20 00:38 Albuterol 2.5 Mg/3 Ml Nebu IH Q4HRT PRN Shortness Of Breath Albuterol/Ipratropium 1 ampul 10/16/20 02:00 10/17/20 03:50 Ipratropium/Albuterol Sulfate 3 Ml Ampul.Neb IH Not Given Q6HRT ENEIDA Amlodipine Besylate 10 mg 10/16/20 10:00 10/16/20 11:09 Amlodipine 10 Mg Tab PO 10 mg DAILY ENEIDA Administration Aspirin 81 mg 10/16/20 10:00 10/16/20 11:10 Aspirin 81 Mg Tab Chew PO 81 mg QDAY ENEIDA Administration Atorvastatin Calcium 80 mg 10/16/20 22:00 10/16/20 21:19 Atorvastatin 40 Mg Tab PO 80 mg QHS ENEIDA Administration Clopidogrel Bisulfate 75 mg 10/16/20 10:00 10/16/20 11:10 Clopidogrel 75 Mg Tab PO 75 mg QDAY ENEIDA Administration Dexamethasone 6 mg 10/17/20 10:00 Dexamethasone 4 Mg/Ml Vial IV DAILY ENEIDA Divalproex Sodium 1,000 mg 10/16/20 10:00 10/16/20 11:[address] 500 Mg Tab PO 1,000 mg DAILY ENEIDA Administration Ezetimibe 10 mg 10/16/20 10:00 10/16/20 11:09 Ezetimibe 10 Mg Tab PO 10 mg QDAY ENEIDA Administration Famotidine 10 mg 10/16/20 10:00 10/16/20 21:19 Famotidine 10 Mg Tab PO 10 mg BID ENEIDA Administration Finasteride 5 mg 10/16/20 10:00 10/16/20 11:09 Finasteride 5 Mg Tab PO 5 mg QDAY ENEIDA Administration Heparin Sodium (Porcine) 5,000 unit 10/16/20 06:00 10/17/20 06:47 Heparin 5,000 Unit/1 Ml Vial SUB-Q 5,000 unit Q8HR ENEIDA Administration Hydralazine HCl 10 mg 10/16/20 00:41 Hydralazine 20 Mg/1 Ml Inj IV Q6H PRN Blood Pressure Hydromorphone HCl 0.5 mg 10/16/20 00:38 Hydromorphone 1 Mg/1 Ml Inj IV Q3H PRN Pain , Severe (7-10) Ceftriaxone Sodium 2 gm in 100 mls @ 200 mls/hr 10/17/20 01:00 10/17/20 01:36 Rocephin/Ns 2 Gm/100 Ml IV 200 mls/hr Q24H ENEIDA Administration Protocol Azithromycin 500 mg in 250 mls @ 250 mls/hr 10/17/20 01:00 10/17/20 01:36 Zithromax/Ns IV 250 mls/hr Q24H ENEIDA Administration Protocol Isosorbide Mononitrate 60 mg 10/16/20 10:00 10/16/20 11:09 Isosorbide Mononitrate Er 60 Mg Tab PO 60 mg QDAY ENEIDA Administration Levetiracetam 500 mg 10/16/20 10:00 10/16/20 21:19 Levetiracetam 500 Mg Tab PO 500 mg BID ENEIDA Administration Lisinopril 10 mg 10/16/20 10:00 10/16/20 11:10 Lisinopril 10 Mg Tab PO 10 mg QDAY ENEIDA Administration Metoprolol Tartrate 25 mg 10/16/20 10:00 10/16/20 11:10 Metoprolol Tartrate 25 Mg Tab PO 25 mg QDAY ENEIDA Administration Ondansetron HCl 4 mg 10/16/20 00:38 Ondansetron 4 Mg/2 Ml Inj IV Q8H PRN Nausea And Vomiting Oxycodone/Acetaminophen 1 tab 10/16/20 00:38 Oxycodone /Acetaminophen 5-325mg Tab PO Q6H PRN Pain, Moderate (4-6) Sodium Chloride 10 ml 10/16/20 10:00 10/16/20 21:20 Sodium Chloride 0.9% 10 Ml Flush Syringe IV 10 ml BID ENEIDA Administration Sodium Chloride 10 ml 10/16/20 00:38 Sodium Chloride 0.9% 10 Ml Flush Syringe IV PRN PRN LINE FLUSH Tamsulosin HCl 0.4 mg 10/16/20 10:00 10/16/20 11:09 Tamsulosin 0.4 Mg Cap PO 0.4 mg QDAY ENEIDA Administration
[2020-10-17] MEDS ORDERED: ALBUTEROL 2.5 MG/3 ML NEBU IH PRN (08:58)
[2020-10-17] MEDS: DIVALPROEX DR 500 MG TAB PO SCH (10:18)
[2020-10-17] MEDS: FAMOTIDINE 10 MG TAB PO SCH ×2 (10:19→21:38)
[2020-10-17] MEDS: METOPROLOL TARTRATE 25 MG TAB PO SCH (10:19)
[2020-10-17] MEDS: LISINOPRIL 10 MG TAB PO SCH (10:19)
[2020-10-17] MEDS: TAMSULOSIN 0.4 MG CAP PO SCH (10:19)
[2020-10-17] MEDS: EZETIMIBE 10 MG TAB PO SCH (10:19)
[2020-10-17] MEDS: ASPIRIN 81 MG TAB CHEW PO SCH (10:19)
[2020-10-17] MEDS: FINASTERIDE 5 MG TAB PO SCH (10:19)
[2020-10-17] MEDS: amLODIPine 10 MG TAB PO SCH (10:19)
[2020-10-17] MEDS: CLOPIDOGREL 75 MG TAB PO SCH (10:19)
[2020-10-17] MEDS: levETIRAcetam 500 MG TAB PO SCH ×2 (10:19→21:38)
[2020-10-17] MEDS: dexAMETHasone 4 MG/ML VIAL IV SCH (10:20)
--- NOTE | 2020-10-17 10:39 | Consultation ---
History of Present Illness Consult date: 10/17/20 Requesting physician: LISA LEWIS Reason for consult: hypoxemia, other (COVID) History of present illness: 75 y/o male presenting with generalized fatigue and shortness of breath. Became very hypoxic with ambulation so tested for COVID and admitted after being found positive. Stable on 2 liters NC right now. Past History Past Medical History: CAD, hypertension, hyperlipidemia (Dementia and hearing loss, enlarged prostate), seizures, other (Depression) Medications and Allergies Allergies Allergy/AdvReac Type Severity Reaction Status Date / Time No Known Allergies Allergy Verified 03/11/14 15:43 Home Medications Medication Instructions Recorded Confirmed Last Taken Type Aspirin [Aspirin BABY CHEW TAB] 81 mg PO QDAY 12/29/13 03/21/16 1 Day Ago History ~03/20/16 81 Atorvastatin [Lipitor] 80 mg PO QHS 12/29/13 03/21/16 1 Day Ago History ~03/20/16 80 Clopidogrel [Plavix] 75 mg PO QDAY 12/29/13 03/21/16 1 Day Ago History ~03/20/16 75 Divalproex [Depsharon Heck] 1 gm PO DAILY 12/29/13 03/21/16 1 Day Ago History ~03/20/16 1 Ezetimibe [Zetia] 10 mg PO QDAY 12/29/13 03/21/16 1 Day Ago History ~03/20/16 10 amLODIPine 10 mg PO DAILY 12/29/13 03/21/16 1 Day Ago History ~03/20/16 10 ISOSORBIDE MONOnitrate [Imdur ER] 60 mg PO QDAY 01/22/15 03/21/16 1 Day Ago History ~03/20/16 60 Metoprolol [Lopressor TAB] 25 mg PO QDAY 01/22/15 03/21/16 1 Day Ago History ~03/20/16 25 Tamsulosin [Flomax] 0.4 mg PO QDAY 01/22/15 03/21/16 1 Day Ago History ~03/20/16 0.4 levETIRAcetam [Keppra TAB] 500 mg PO BID 01/22/15 03/21/16 1 Day Ago History ~03/20/16 500 lisinopriL [Zestril TAB] 10 mg PO QDAY 01/22/15 03/21/16 1 Day Ago History ~03/20/16 10 Finasteride [Proscar] 5 mg PO QDAY 03/21/16 03/21/16 1 Day Ago History ~03/20/16 5 Active Meds: Active Medications Acetaminophen (Acetaminophen 325 Mg Tab) 650 mg PO Q4H PRN PRN Reason: Pain MILD(1-3)/Fever >100.5/CAR[place]O Last Admin: 10/16/20 07:06 Dose: 650 mg Documented by: Albuterol (Albuterol 2.5 Mg/3 Ml Nebu) 2.5 mg IH Q4HRT PRN PRN Reason: Shortness Of Breath Amlodipine Besylate (Amlodipine 10 Mg Tab) 10 mg PO DAILY [facility] Last Admin: 10/17/20 10:19 Dose: 10 mg Documented by: Aspirin (Aspirin 81 Mg Tab Chew) 81 mg PO QDAY [facility] Last Admin: 10/17/20 10:19 Dose: 81 mg Documented by: Atorvastatin Calcium (Atorvastatin 40 Mg Tab) 80 mg PO QHS [facility] Last Admin: 10/16/20 21:19 Dose: 80 mg Documented by: Clopidogrel Bisulfate (Clopidogrel 75 Mg Tab) 75 mg PO QDAY [facility] Last Admin: 10/17/20 10:19 Dose: 75 mg Documented by: Dexamethasone (Dexamethasone 4 Mg/Ml Vial) 6 mg IV DAILY [facility] Last Admin: 10/17/20 10:20 Dose: 6 mg Documented by: Divalproex Sodium (Divalproex Dr 500 Mg Tab) 1,000 mg PO DAILY [facility] Last Admin: 10/17/20 10:18 Dose: 1,000 mg Documented by: Ezetimibe (Ezetimibe 10 Mg Tab) 10 mg PO QDAY [facility] Last Admin: 10/17/20 10:19 Dose: 10 mg Documented by: Famotidine (Famotidine 10 Mg Tab) 10 mg PO BID [facility] Last Admin: 10/17/20 10:19 Dose: 10 mg Documented by: Finasteride (Finasteride 5 Mg Tab) 5 mg PO QDAY [facility] Last Admin: 10/17/20 10:19 Dose: 5 mg Documented by: Heparin Sodium (Porcine) (Heparin 5,000 Unit/1 Ml Vial) 5,000 unit SUB-Q Q8HR [facility] Last Admin: 10/17/20 06:47 Dose: 5,000 unit Documented by: Hydralazine HCl (Hydralazine 20 Mg/1 Ml Inj) 10 mg IV Q6H PRN PRN Reason: Blood Pressure Hydromorphone HCl (Hydromorphone 1 Mg/1 Ml Inj) 0.5 mg IV Q3H PRN PRN Reason: Pain , Severe (7-10) Ceftriaxone Sodium (Rocephin/Ns 2 Gm/100 Ml) 2 gm in 100 mls @ 200 mls/hr IV Q24H [facility]; Protocol Last Admin: 10/17/20 01:36 Dose: 200 mls/hr Documented by: Azithromycin (Zithromax/Ns) 500 mg in 250 mls @ 250 mls/hr IV Q24H [facility]; Protocol Last Admin: 10/17/20 01:36 Dose: 250 mls/hr Documented by: Isosorbide Mononitrate (Isosorbide Mononitrate Er 60 Mg Tab) 60 mg PO QDAY [facility] Last Admin: 10/17/20 10:20 Dose: 60 mg Documented by: Levetiracetam (Levetiracetam 500 Mg Tab) 500 mg PO BID [facility] Last Admin: 10/17/20 10:19 Dose: 500 mg Documented by: Lisinopril (Lisinopril 10 Mg Tab) 10 mg PO QDAY [facility] Last Admin: 10/17/20 10:19 Dose: 10 mg Documented by: Metoprolol Tartrate (Metoprolol Tartrate 25 Mg Tab) 25 mg PO QDAY [facility] Last Admin: 10/17/20 10:19 Dose: 25 mg Documented by: Ondansetron HCl (Ondansetron 4 Mg/2 Ml Inj) 4 mg IV Q8H PRN PRN Reason: Nausea And Vomiting Oxycodone/Acetaminophen (Oxycodone /Acetaminophen 5-325mg Tab) 1 tab PO Q6H PRN PRN Reason: Pain, Moderate (4-6) Sodium Chloride (Sodium Chloride 0.9% 10 Ml Flush Syringe) 10 ml IV BID [facility] Last Admin: 10/17/20 10:21 Dose: 10 ml Documented by: Sodium Chloride (Sodium Chloride 0.9% 10 Ml Flush Syringe) 10 ml IV PRN PRN PRN Reason: LINE FLUSH Tamsulosin HCl (Tamsulosin 0.4 Mg Cap) 0.4 mg PO QDAY [facility] Last Admin: 10/17/20 10:19 Dose: 0.4 mg Documented by: Review of Systems All systems: negative Physical Examination Vital signs: Vital Signs Pulse Resp BP Pulse Ox 84 24 122/88 100 10/16/20 03:30 10/16/20 03:30 10/16/20 03:30 10/16/20 03:30 General appearance: no acute distress, alert Neck: supple Effort: normal Ascultation: Bilateral: clear Results - Laboratory Findings CBC and BMP: 10/17/20 03:23 10/17/20 03:23 PT/INR, D-dimer PT 14.0 Sec. (12.2-14.9) 10/15/20 23:29 INR 1.02 (0.87-1.13) 10/15/20 23:29 D-Dimer 885.91 ng/mlDDU (0-234) H 10/15/20 23:29 Abnormal lab findings: Abnormal Labs 10/15/20 10/15/20 10/15/20 23:29 23:29 23:29 WBC RBC 5.17 H Hgb 15.8 H Hct 46.0 H MCHC Lymph % (Auto) 7.4 L [place] % (Auto) 13.4 H Lymph # (Auto) 0.5 L Seg Neutrophils % 78.8 H Seg Neuts % (Manual) Lymphocytes % (Manual) Monocytes % (Manual) Lymphocytes # (Manual) D-Dimer 885.91 H Sodium 129 L Chloride 89.7 L BUN Creatinine 1.9 H Glucose 113 H POC Glucose Lactic Acid Calcium Ferritin AST 61 H Lactate Dehydrogenase 289 H C-Reactive Protein 4.40 H Coronavirus (PCR) 10/15/20 10/15/20 10/16/20 23:29 23:29 16:27 WBC RBC Hgb Hct MCHC Lymph % (Auto) [place] % (Auto) Lymph # (Auto) Seg Neutrophils % Seg Neuts % (Manual) Lymphocytes % (Manual) Monocytes % (Manual) Lymphocytes # (Manual) D-Dimer Sodium Chloride BUN Creatinine Glucose POC Glucose 131 H Lactic Acid 2.80 H* Calcium Ferritin 578.4 H AST Lactate Dehydrogenase C-Reactive Protein Coronavirus (PCR) 10/16/20 10/17/20 10/17/20 Unknown 03:23 03:23 WBC 3.5 L RBC Hgb Hct MCHC 35 H Lymph % (Auto) [place] % (Auto) Lymph # (Auto) Seg Neutrophils % Seg Neuts % (Manual) 80.0 H Lymphocytes % (Manual) 10.0 L Monocytes % (Manual) 9.0 H Lymphocytes # (Manual) 0.4 L D-Dimer Sodium 133 L Chloride 97.2 L BUN 22 H Creatinine 1.5 H Glucose 136 H POC Glucose Lactic Acid Calcium 8.1 L Ferritin AST Lactate Dehydrogenase C-Reactive Protein Coronavirus (PCR) Positive A - Diagnostic Findings Chest x-ray: image reviewed Assessment and Plan 75 y/o male with acute respiratory failure secondary to COVID pneumonia. 1. Suggest Remdesivir 2. Continue supplemental oxygen 3. Steroids for 10 days 4. Despite low oxygen requirements, needs to prone 5. Guarded prognosis.
--- NOTE | 2020-10-17 15:25 | Consultation ---
History of Present Illness - Reason for Consult Consult date: 10/17/20 COVID - History of Present Illness 75-year-old male with history of hypertension, dementia, CAD, admitted on 10/16/2020 secondary to a week history of generalized malaise, fatigue, body aches, cough and progressive shortness of breath. Patient did not receive COVID-19 vaccine. Patient tested positive for COVID-19 at a [place] facility where he was found to be hypoxic. On arrival, temperature 100, HR 84, RR 24, BP 122/88, O2 sat 93%. Sats dropped to 67%/HR 122 on ambulation at the [place] facility. Chest x-ray with bilateral infiltrates. Review of Systems: reviewed ED and H&P notes. Review of system deferred to m inimize COVID-19 transmission. Past History Past Medical History: CAD, hypertension, hyperlipidemia (Dementia and hearing loss, enlarged prostate), seizures, other (Depression) Medications and Allergies Allergies Allergy/AdvReac Type Severity Reaction Status Date / Time No Known Allergies Allergy Verified 03/11/14 15:43 Home Medications Medication Instructions Recorded Confirmed Last Taken Type Aspirin [Aspirin BABY CHEW TAB] 81 mg PO QDAY 12/29/13 03/21/16 1 Day Ago History ~03/20/16 81 Atorvastatin [Lipitor] 80 mg PO QHS 12/29/13 03/21/16 1 Day Ago History ~03/20/16 80 Clopidogrel [Plavix] 75 mg PO QDAY 12/29/13 03/21/16 1 Day Ago History ~03/20/16 75 Divalproex [Gilmar Heck] 1 gm PO DAILY 12/29/13 03/21/16 1 Day Ago History ~03/20/16 1 Ezetimibe [Zetia] 10 mg PO QDAY 12/29/13 03/21/16 1 Day Ago History ~03/20/16 10 amLODIPine 10 mg PO DAILY 12/29/13 03/21/16 1 Day Ago History ~03/20/16 10 ISOSORBIDE MONOnitrate [Imdur ER] 60 mg PO QDAY 01/22/15 03/21/16 1 Day Ago Hi story ~03/20/16 60 Metoprolol [Lopressor TAB] 25 mg PO QDAY 01/22/15 03/21/16 1 Day Ago History ~03/20/16 25 Tamsulosin [Flomax] 0.4 mg PO QDAY 01/22/15 03/21/16 1 Day Ago History ~03/20/16 0.4 levETIRAcetam [Keppra TAB] 500 mg PO BID 01/22/15 03/21/16 1 Day Ago History ~03/20/16 500 lisinopriL [Zestril TAB] 10 mg PO QDAY 01/22/15 03/21/16 1 Day Ago History ~03/20/16 10 Finasteride [Proscar] 5 mg PO QDAY 03/21/16 03/21/16 1 Day Ago History ~03/20/16 5 Active Meds: Active Medications Acetaminophen (Acetaminophen 325 Mg Tab) 650 mg PO Q4H PRN PRN Reason: Pain MILD(1-3)/Fever >100.5/CARBALLO Last Admin: 10/16/20 07:06 Dose: 650 mg Documented by: Albuterol (Albuterol 2.5 Mg/3 Ml Nebu) 2.5 mg IH Q4HRT PRN PRN Reason: Shortness Of Breath Amlodipine Besylate (Amlodipine 10 Mg Tab) 10 mg PO DAILY [facility] Last Admin: 10/17/20 10:19 Dose: 10 mg Documented by: Aspirin (Aspirin 81 Mg Tab Chew) 81 mg PO QDAY [facility] Last Admin: 10/17/20 10:19 Dose: 81 mg Documented by: Atorvastatin Calcium (Atorvastatin 40 Mg Tab) 80 mg PO QHS [facility] Last Admin: 10/16/20 21:19 Dose: 80 mg Documented by: Clopidogrel Bisulfate (Clopidogrel 75 Mg Tab) 75 mg PO QDAY [facility] Last Admin: 10/17/20 10:19 Dose: 75 mg Documented by: Dexamethasone (Dexamethasone 4 Mg/Ml Vial) 6 mg IV DAILY [facility] Last Admin: 10/17/20 10:20 Dose: 6 mg Documented by: Divalproex Sodium (Divalproex Dr 500 Mg Tab) 1,000 mg PO DAILY [facility] Last Admin: 10/17/20 10:18 Dose: 1,000 mg Documented by: Ezetimibe (Ezetimibe 10 Mg Tab) 10 mg PO QDAY [facility] Last Admin: 10/17/20 10:19 Dose: 10 mg Documented by: Famotidine (Famotidine 10 Mg Tab) 10 mg PO BID [facility] Last Admin: 10/17/20 10:19 Dose: 10 mg Documented by: Finasteride (Finasteride 5 Mg Tab) 5 mg PO QDAY [facility] Last Admin: 10/17/20 10:19 Dose: 5 mg Documented by: Heparin Sodium (Porcine) (Heparin 5,000 Unit/1 Ml Vial) 5,000 unit SUB-Q Q8HR [facility] Last Admin: 10/17/20 13:53 Dose: 5,000 unit Documented by: Hydralazine HCl (Hydralazine 20 Mg/1 Ml Inj) 10 mg IV Q6H PRN PRN Reason: Blood Pressure Hydromorphone HCl (Hydromorphone 1 Mg/1 Ml Inj) 0.5 mg IV Q3H PRN PRN Reason: Pain , Severe (7-10) Ceftriaxone Sodium (Rocephin/Ns 2 Gm/100 Ml) 2 gm in 100 mls @ 200 mls/hr IV Q24H [facility]; Protocol Last Admin: 10/17/20 01:36 Dose: 200 mls/hr Documented by: Azithromycin (Zithromax/Ns) 500 mg in 250 mls @ 250 mls/hr IV Q24H [facility]; Protocol Last Admin: 10/17/20 01:36 Dose: 250 mls/hr Documented by: Isosorbide Mononitrate (Isosorbide Mononitrate Er 60 Mg Tab) 60 mg PO QDAY [facility] Last Admin: 10/17/20 10:20 Dose: 60 mg Documented by: Levetiracetam (Levetiracetam 500 Mg Tab) 500 mg PO BID [facility] Last Admin: 10/17/20 10:19 Dose: 500 mg Documented by: Lisinopril (Lisinopril 10 Mg Tab) 10 mg PO QDAY [facility] Last Admin: 10/17/20 10:19 Dose: 10 mg Documented by: Metoprolol Tartrate (Metoprolol Tartrate 25 Mg Tab) 25 mg PO QDAY [facility] Last Admin: 10/17/20 10:19 Dose: 25 mg Documented by: Ondansetron HCl (Ondansetron 4 Mg/2 Ml Inj) 4 mg IV Q8H PRN PRN Reason: Nausea And Vomiting Oxycodone/Acetaminophen (Oxycodone /Acetaminophen 5-325mg Tab) 1 tab PO Q6H PRN PRN Reason: Pain, Moderate (4-6) Sodium Chloride (Sodium Chloride 0.9% 10 Ml Flush Syringe) 10 ml IV BID [facility] Last Admin: 10/17/20 10:21 Dose: 10 ml Documented by: Sodium Chloride (Sodium Chloride 0.9% 10 Ml Flush Syringe) 10 ml IV PRN PRN PRN Reason: LINE FLUSH Tamsulosin HCl (Tamsulosin 0.4 Mg Cap) 0.4 mg PO QDAY [facility] Last Admin: 10/17/20 10:19 Dose: 0.4 mg Documented by: Physical Examination - Physical Exam Narrative exam: Physical exam deferred to minimize COVID-19 transmission during pandemic. ER and internal medicine physical examination notes reviewed. - Constitutional Vitals: Vital Signs Temp Pulse Resp BP Pulse Ox 98.7 F 73 18 96/67 98 10/17/20 12:08 10/17/20 05:07 10/17/20 12:08 10/17/20 12:08 10/17/20 14:45 Temperature -Last 24 Hours Temperature 98.7 F Temperature 97.7 F Temperature 97.4 F Temperature 97.5 F Results - Labs CBC & Chem 7: 10/17/20 03:23 10/17/20 03:23 Labs: Abnormal lab results 10/16/20 10/17/20 10/17/20 Range/Units 16:27 03:23 03:23 WBC 3.5 L (4.5-11.0) K/mm3 MCHC 35 H (32-34) % Seg Neuts % (Manual) 80.0 H (40.0-70.0) % Lymphocytes % (Manual) 10.0 L (13.4-35.0) % Monocytes % (Manual) 9.0 H (0.0-7.3) % Lymphocytes # (Manual) 0.4 L (1.2-5.4) K/mm3 Sodium 133 L (137-145) mmol/L Chloride 97.2 L (98-107) mmol/L BUN 22 H (9-20) mg/dL Creatinine 1.5 H (0.8-1.3) mg/dL Glucose 136 H (75-100) mg/dL POC Glucose 131 H (70-105) mg/dL Calcium 8.1 L (8.4-10.2) mg/dL Assessment and Plan Cultures: Blood culture 10/16/2020 no growth SARS CoV2 PCR positive Assessment: 75-year-old male with history of hypertension, dementia, CAD, admitted on 10/16/2020 secondary to a week history of generalized malaise, fatigue, body aches, cough and progressive shortness of breath: #Severe sepsis: Present on admission with tachycardia, hypoxia, fever, elevated lactate, elevated creatinine; likely secondary to COVID-19. Procalcitonin elevated in the setting of renal failure. #Severe COVID pneumonia: CXR with bilateral pneumonia. Infllammatory markers elevated. CRP 4.4. Ferritin 578. D-dimer 885. #Acute hypoxemic respiratory failure: #JIE: Initial creatinine 1.9. Recommendations: -Continue dexamethasone 6 mg IV/PO daily for 10 days -Start Remdesivir for 5 days (CrCl>30 mg/mL) -Monitor inflammatory markers - ferritin, Ddimer, CRP, LDH -Monitor liver function test on Remdesivir -Continue anticoagulation per System Protocol -Prone positioning as possible -Ceftriaxone for 5 days and azithromycin for 3 days -Check UA patient complaining of dysuria All laboratory, cultures and imaging were reviewed. Will follow Mariangel Gorman MD Infectious Diseases [employer] [facility] M [phone] O [phone]
[2020-10-17] MEDS: SODIUM CHLORIDE 0.9% 50 ML IVPB IV SCH (16:49)
[2020-10-17] MEDS ORDERED: SODIUM CHLORIDE 0.9% 250ML 0 ML ONE (16:51)
[2020-10-17] MEDS ORDERED: SODIUM CHLORIDE 0.9% 50 ML ONE (17:01)
[2020-10-17] MEDS ORDERED: REMDESIVIR 200 MG in SODIUM CHLORIDE 0.9% 250ML 250 ML IV ONE (17:30)
[2020-10-17 18:40] LABS: Alanine Aminotransferase 33 units/L (7-56); Albumin 3.2 g/dL (3.9-5); BUN/Creatinine Ratio 18; Blood Urea Nitrogen 23 mg/dL (9-20); Calcium 8.6 mg/dL (8.4-10.2); Hemolysis Index 2
[2020-10-18] MEDS: AZITHROMYCIN/NS 500 MG/250 ML 500 MG/250 ML BAG IV SCH (00:14)
[2020-10-18] MEDS: SODIUM CHLORIDE 0.9% 50 ML IVPB IV SCH ×2 (01:40→21:45)
[2020-10-18] MEDS: cefTRIAXone/NS 2 GM/100 ML 2 GM/100 ML BAG IV SCH (01:42)
[2020-10-18 04:27] LABS: Hematocrit 37.1 % (35.5-45.6); Hemoglobin 12.6 gm/dl (11.8-15.2); Mean Corpuscular HGB Conc 34 % (32-34); Mean Corpuscular Volume 88 fl (84-94); Platelet Count 206 K/mm3 (140-440); Red Cell Distribution Width 13.6 % (13.2-15.2)
[2020-10-18 04:47] LABS: Alanine Aminotransferase 30 units/L (7-56); Albumin 3.2 g/dL (3.9-5); BUN/Creatinine Ratio 18; Blood Urea Nitrogen 23 mg/dL (9-20); Calcium 8.1 mg/dL (8.4-10.2); Hemolysis Index 47
[2020-10-18] MEDS: HEPARIN 5,000 UNIT/1 ML VIAL SUB-Q SCH ×3 (05:38→22:21)
--- NOTE | 2020-10-18 08:24 | Progress Note ---
Assessment and Plan Assessment and plan: 75 years old male with history of seizure hypertension dementia and CAD was brought to the hospital because of shortness of breath, weakness malaise fatigue and body ache. Patient is not vaccinated against COVID-19 but patient is test is positive for COVID-19 at an outpatient [place] facility. Patient is found hypoxic. Patient was given a trial of ambulation patient became very symptomatic O2 sat dropped to 67% and patient visit became very tachycardic with a heart rate of 122. Subsequently patient was brought to the emergency room by [facility] [place] [facility] because of symptomatic Covid. Patient normally ambulates with a walker and with a cane. Patient also endorses dysuria. Patient reports significant weakness and difficulty ambulating without assistance We are going to admit the patient as Covid pneumonia hypoxic respiratory failure. We will consult infectious disease and pulmonary for evaluation Med rec is done. Advance discharge process is initiated (1) Acute respiratory failure with hypoxia Status: Acute Plan to address problem: Admit the patient to the medical telemetry. Oxygen via nasal cannula 3 to per minute DuoNeb by nebulizer every 4 hours Rocephin 2 g IV daily. Zithromax 500 mg IV daily. Dexamethasone 6 mg IV daily. Vitamin C 500 mg p.o. twice daily and zinc and vitamin D. Follow Covid inflammatory marker. We also consult infectious disease and pulmonary for evaluation (2) CAD (coronary artery disease) Status: Acute Qualifiers: Coronary Disease-Associated Artery/Lesion type: bypass graft [place] vs. tra nsplanted heart: cahto heart Associated angina: without angina Qualified Code(s): I25.810 - Atherosclerosis of coronary artery bypass graft(s) without angina pectoris Plan to address problem: Stable we will continue the home medication. We will continue Plavix 75 mg p.o. daily. Lipitor 80 mg p.o. daily. Aspirin 81 mg p.o. daily Lopressor 20 mg p.o. daily Imdur 60 mg p.o. daily (3) COVID-19 with sepesis Status: Acute Plan to address problem: Oxygen via nasal cannula 3 to per minute DuoNeb by nebulizer every 4 hours Rocephin 2 g IV daily. Zithromax 500 mg IV daily. Dexamethasone 6 mg IV daily. Vitamin C 500 mg p.o. twice daily and zinc and vitamin D. Follow Covid inflammatory marker. We also consult infectious disease and pulmonary for evaluation (4) Hypertension Status: Acute Plan to address problem: Imdur 60 mg p.o. daily. Hydralazine 10 mill IV every 6 hours as needed we will continue the home medication. We will monitor the blood pressure closely (5) JIE with vasomotor nephropathy Status: Acute Plan to address problem: Avoid nephrotoxic drug. Renally dose medication. We will recheck CBC BMP in the morning (6) DVT prophylaxis Status: Acute Plan to address problem: Heparin 5000 units subcu every 8 hours for DVT prophylaxis. Pepcid 20 mg p.o. twice daily for GI prophylaxis. Patient is a full code 10/17: Patient remains with significant debility, renal function improving, awaiting Physical therapy evaluation and we still need exertion dyspnea. Continue steroids. 10/18; Continue dexamethasone and Remdesivir, Ceftriaxone for 5 days and azithromycin for 3 days ID and pulmonary input noted. Monitor UA as ordered by ID due to complaints of Dysuria. Continue antibcoagulation and encourage to PRONE. Patient is legally blind. Family is also requesting for assistance, will obtain Case management assistance. We will obtain home oxygen evaluation History Interval history: Patient seen and examined, no new complaints, per nursing staff, patients saturation remains in the 98% range o 2 liters at rest. No other issues reported overnight Hospitalist Physical - Physical exam Narrative exam: - Constitutional General appearance: Present: no acute distress, well-nourished - EENT Eyes: Present: PERRL ENT: hearing intact, clear oral mucosa - Neck Neck: Present: supple, normal ROM - Respiratory Respiratory effort: normal Respiratory: bilateral: diminished - Cardiovascular Heart Sounds: Present: S1 & S2. Absent: rub, click - Extremities Extremities: pulses symmetrical, No edema Peripheral Pulses: within normal limits - Abdominal General gastrointestinal: Present: soft, non-tender, non-distended, normal bowel sounds Male genitourinary: Present: normal - Integumentary Integumentary: Present: clear, warm, dry - Musculoskeletal Musculoskeletal: gait normal, strength equal bilaterally - Psychiatric Psychiatric: appropriate mood/affect, intact judgment & insight - Neurologic Neurologic: CNII-XII intact, other (Patient is awake alert to name and location patient patient has abnormal gait. Patient walks with an unsteady gait and require a person assist) - Constitutional Vitals: Temp Pulse Resp BP Pulse Ox 97.6 F 70 18 113/60 94 09/13/21 05:49 10/18/20 05:49 10/18/20 05:49 10/18/20 05:49 10/18/20 05:49 General appearance: Present: no acute distress, well-nourished Results - Labs CBC & Chem 7: 10/18/20 03:48 10/18/20 03:48 Labs: Laboratory Last Values WBC 7.1 K/mm3 (4.5-11.0) 10/18/20 03:48 RBC 4.20 M/mm3 (3.65-5.03) 10/18/20 03:48 Hgb 12.6 gm/dl (11.8-15.2) 10/18/20 03:48 Hct 37.1 % (35.5-45.6) 10/18/20 03:48 MCV 88 fl (84-94) 10/18/20 03:48 MCH 30 pg (28-32) 10/18/20 03:48 MCHC 34 % (32-34) 10/18/20 03:48 RDW 13.6 % (13.2-15.2) 10/18/20 03:48 Plt Count 206 K/mm3 (140-440) 10/18/20 03:48 Lymph % (Auto) 7.4 % (13.4-35.0) L 10/15/20 23:29 Wayne % (Auto) Licensed Practical Nurse 10/17/20 03:23 Eos % (Auto) 0.0 % (0.0-4.3) 10/15/20 23:29 Baso % (Auto) 0.4 % (0.0-1.8) 10/15/20 23:29 Lymph # (Auto) 0.5 K/mm3 (1.2-5.4) L 10/15/20 23:29 Wayne # (Auto) 0.8 K/mm3 (0.0-0.8) 10/15/20 23:29 Eos # (Auto) 0.0 K/mm3 (0.0-0.4) 10/15/20 23:29 Baso # (Auto) 0.0 K/mm3 (0.0-0.1) 10/15/20 23:29 Add Manual Diff Complete 10/17/20 03:23 Total Counted 100 10/17/20 03:23 Seg Neutrophils % 78.8 % (40.0-70.0) H 10/15/20 23:29 Seg Neuts % (Manual) 80.0 % (40.0-70.0) H 10/17/20 03:23 Band Neutrophils % 1.0 % 10/17/20 03:23 Lymphocytes % (Manual) 10.0 % (13.4-35.0) L 10/17/20 03:23 Monocytes % (Manual) 9.0 % (0.0-7.3) H 10/17/20 03:23 Nucleated RBC % Not Reportable 10/17/20 03:23 Seg Neutrophils # 4.9 K/mm3 (1.8-7.7) 10/15/20 23:29 Seg Neutrophils # Man 2.8 K/mm3 (1.8-7.7) 10/17/20 03:23 Band Neutrophils # 0.0 K/mm3 10/17/20 03:23 Lymphocytes # (Manual) 0.4 K/mm3 (1.2-5.4) L 10/17/20 03:23 Abs React Lymphs (Man) 0.0 K/mm3 10/17/20 03:23 Monocytes # (Manual) 0.3 K/mm3 (0.0-0.8) 10/17/20 03:23 Eosinophils # (Manual) 0.0 K/mm3 (0.0-0.4) 10/17/20 03:23 Basophils # (Manual) 0.0 K/mm3 (0.0-0.1) 10/17/20 03:23 Metamyelocytes # 0.0 K/mm3 10/17/20 03:23 Myelocytes # 0.0 K/mm3 10/17/20 03:23 Promyelocytes # 0.0 K/mm3 10/17/20 03:23 Blast Cells # 0.0 K/mm3 10/17/20 03:23 WBC Morphology Not Reportable 10/17/20 03:23 Hypersegmented Neuts Not Reportable 10/17/20 03:23 Hyposegmented Neuts Not Reportable 10/17/20 03:23 Hypogranular Neuts Not Reportable 10/17/20 03:23 Smudge Cells Not Reportable 10/17/20 03:23 Toxic Granulation Not Reportable 10/17/20 03:23 Toxic Vacuolation Not Reportable 10/17/20 03:23 Dohle Bodies Not Reportable 10/17/20 03:23 Pelger-Huet Anomaly Not Reportable 10/17/20 03:23 Luisa Rods Not Reportable 10/17/20 03:23 Platelet Estimate Consistent w auto 10/17/20 03:23 Clumped Platelets Not Reportable 10/17/20 03:23 Plt Clumps, EDTA Not Reportable 10/17/20 03:23 Large Platelets Not Reportable 10/17/20 03:23 Giant Platelets Not Reportable 10/17/20 03:23 Platelet Satelliting Not Reportable 10/17/20 03:23 Plt Morphology Comment Not Reportable 10/17/20 03:23 RBC Morphology Not Reportable 10/17/20 03:23 Dimorphic RBCs Not Reportable 10/17/20 03:23 Polychromasia Not Reportable 10/17/20 03:23 Hypochromasia Not Reportable 10/17/20 03:23 Poikilocytosis Not Reportable 10/17/20 03:23 Anisocytosis 1+ 10/17/20 03:23 Microcytosis Not Reportable 10/17/20 03:23 Macrocytosis Not Reportable 10/17/20 03:23 Spherocytes Not Reportable 10/17/20 03:23 Pappenheimer Bodies Not Reportable 10/17/20 03:23 Sickle Cells Not Reportable 10/17/20 03:23 Target Cells Not Reportable 10/17/20 03:23 Tear Drop Cells Not Reportable 10/17/20 03:23 Ovalocytes Not Reportable 10/17/20 03:23 Helmet Cells Not Reportable 10/17/20 03:23 Dickinson-Hinckley Bodies Not Reportable 10/17/20 03:23 [place] Rings Not Reportable 10/17/20 03:23 [place] Cells Not Reportable 10/17/20 03:23 Bite Cells Not Reportable 10/17/20 03:23 Crenated Cell Not Reportable 10/17/20 03:23 Elliptocytes Not Reportable 10/17/20 03:23 Acanthocytes (Spur) Not Reportable 10/17/20 03:23 Rouleaux Not Reportable 10/17/20 03:23 Hemoglobin C Crystals Not Reportable 10/17/20 03:23 Schistocytes Not Reportable 10/17/20 03:23 Malaria parasites Not Reportable 10/17/20 03:23 [address] Bodies Not Reportable 10/17/20 03:23 Hem Pathologist Commnt No 10/17/20 03:23 PT 14.0 Sec. (12.2-14.9) 10/15/20 23:29 INR 1.02 (0.87-1.13) 10/15/20 23:29 APTT 33.7 Sec. (24.2-36.6) 10/15/20 23:29 D-Dimer 204.41 ng/mlDDU (0-234) 10/17/20 17:01 Sodium 137 mmol/L (137-145) 10/18/20 03:48 Potassium 5.3 mmol/L (3.6-5.0) H 10/18/20 03:48 Chloride 100.0 mmol/L (98-107) 10/18/20 03:48 Carbon Dioxide 28 mmol/L (22-30) 10/18/20 03:48 Anion Gap 14 mmol/L 10/18/20 03:48 BUN 23 mg/dL (9-20) H 10/18/20 03:48 Creatinine 1.3 mg/dL (0.8-1.3) 10/18/20 03:48 Estimated GFR > 60 ml/min 10/18/20 03:48 BUN/Creatinine Ratio 18 % 10/18/20 03:48 Glucose 118 mg/dL (75-100) H 10/18/20 03:48 POC Glucose 131 mg/dL (70-105) H 10/16/20 16:27 Lactic Acid 1.10 mmol/L (0.7-2.0) 10/16/20 04:00 Calcium 8.1 mg/dL (8.4-10.2) L 10/18/20 03:48 Magnesium 2.00 mg/dL (1.7-2.3) 10/15/20 23:29 Ferritin 541.4 ng/mL (30.0-300.0) H 10/17/20 17:01 Total Bilirubin 0.20 mg/dL (0.1-1.2) 10/18/20 03:48 AST 59 units/L (5-40) H 10/18/20 03:48 ALT 30 units/L (7-56) 10/18/20 03:48 Alkaline Phosphatase 61 units/L (35-129) 10/18/20 03:48 Lactate Dehydrogenase 221 units/L (91-180) H 10/17/20 17:01 C-Reactive Protein 1.80 mg/dL (0.00-1.30) H 10/17/20 17:01 Total Protein 6.1 g/dL (6.3-8.2) L 10/18/20 03:48 Albumin 3.2 g/dL (3.9-5) L 10/18/20 03:48 Albumin/Globulin Ratio 1.1 % 10/18/20 03:48 Procalcitonin 0.47 ng/mL (<0.15) 10/15/20 23:29 Coronavirus (PCR) Positive (Negative) A 10/16/20 Unknown Microbiology: Microbiology 10/15/20 23:29 Peripheral/Venous Blood Culture - Preliminary NO GROWTH AFTER 24 HOURS 10/16/20 00:08 Peripheral/Venous Blood Culture - Preliminary NO GROWTH AFTER 24 HOURS Mcknight/IV: Voiding Method Condom Catheter Active Medications - Current Medications Current Medications: Generic Name Dose Route Start Last Admin Trade Name Freq PRN Reason Stop Dose Admin Acetaminophen 650 mg 10/16/20 00:38 10/16/20 07:06 Acetaminophen 325 Mg Tab PO 650 mg Q4H PRN Administration Pain MILD(1-3)/Fever >100.5/[place]O Albuterol 2.5 mg 10/17/20 08:58 Albuterol 2.5 Mg/3 Ml Nebu IH Q4HRT PRN Shortness Of Breath Amlodipine Besylate 10 mg 10/16/20 10:00 10/17/20 10:19 Amlodipine 10 Mg Tab PO 10 mg DAILY ENEIDA Administration Aspirin 81 mg 10/16/20 10:00 10/17/20 10:19 Aspirin 81 Mg Tab Chew PO 81 mg QDAY ENEIDA Administration Atorvastatin Calcium 80 mg 10/16/20 22:00 10/17/20 21:39 Atorvastatin 40 Mg Tab PO 80 mg QHS ENEIDA Administration Clopidogrel Bisulfate 75 mg 10/16/20 10:00 10/17/20 10:19 Clopidogrel 75 Mg Tab PO 75 mg QDAY ENEIDA Administration Dexamethasone 6 mg 10/17/20 10:00 10/17/20 10:20 Dexamethasone 4 Mg/Ml Vial IV 6 mg DAILY ENEIDA Administration Divalproex Sodium 1,000 mg 10/16/20 10:00 10/17/20 10:[address] 500 Mg Tab PO 1,000 mg DAILY ENEIDA Administration Ezetimibe 10 mg 10/16/20 10:00 10/17/20 10:19 Ezetimibe 10 Mg Tab PO 10 mg QDAY ENEIDA Administration Famotidine 10 mg 10/16/20 10:00 10/17/20 21:38 Famotidine 10 Mg Tab PO 10 mg BID ENEIDA Administration Finasteride 5 mg 10/16/20 10:00 10/17/20 10:19 Finasteride 5 Mg Tab PO 5 mg QDAY ENEIDA Administration Heparin Sodium (Porcine) 5,000 unit 10/16/20 06:00 10/18/20 05:38 Heparin 5,000 Unit/1 Ml Vial SUB-Q 5,000 unit Q8HR ENEIDA Administration Hydralazine HCl 10 mg 10/16/20 00:41 Hydralazine 20 Mg/1 Ml Inj IV Q6H PRN Blood Pressure Hydromorphone HCl 0.5 mg 10/16/20 00:38 Hydromorphone 1 Mg/1 Ml Inj IV Q3H PRN Pain , Severe (7-10) Ceftriaxone Sodium 2 gm in 100 mls @ 200 mls/hr 10/17/20 01:00 10/18/20 01:42 Rocephin/Ns 2 Gm/100 Ml IV 200 mls/hr Q24H ENEIDA Administration Protocol Azithromycin 500 mg in 250 mls @ 250 mls/hr 10/17/20 01:00 10/18/20 00:14 Zithromax/Ns IV 250 mls/hr Q24H ENEIDA Administration Protocol REMDESIVIR 100 mg/ Sodium 250 mls @ 500 mls/hr 10/18/20 21:00 Chloride IV 10/21/20 21:29 Q24HR@2100 ENEIDA Isosorbide Mononitrate 60 mg 10/16/20 10:00 10/17/20 10:20 Isosorbide Mononitrate Er 60 Mg Tab PO 60 mg QDAY ENEIDA Administration Levetiracetam 500 mg 10/16/20 10:00 10/17/20 21:38 Levetiracetam 500 Mg Tab PO 500 mg BID ENEIDA Administration Lisinopril 10 mg 10/16/20 10:00 10/17/20 10:19 Lisinopril 10 Mg Tab PO 10 mg QDAY ENEIDA Administration Metoprolol Tartrate 25 mg 10/16/20 10:00 10/17/20 10:19 Metoprolol Tartrate 25 Mg Tab PO 25 mg QDAY ENEIDA Administration Ondansetron HCl 4 mg 10/16/20 00:38 Ondansetron 4 Mg/2 Ml Inj IV Q8H PRN Nausea And Vomiting Oxycodone/Acetaminophen 1 tab 10/16/20 00:38 Oxycodone /Acetaminophen 5-325mg Tab PO Q6H PRN Pain, Moderate (4-6) Sodium Chloride 10 ml 10/16/20 10:00 10/17/20 21:41 Sodium Chloride 0.9% 10 Ml Flush Syringe IV 10 ml BID ENEIDA Administration Sodium Chloride 10 ml 10/16/20 00:38 Sodium Chloride 0.9% 10 Ml Flush Syringe IV PRN PRN LINE FLUSH Sodium Chloride 50 ml 10/17/20 21:00 10/18/20 01:40 Sodium Chloride 0.9% 50 Ml Ivpb IV 10/21/20 21:01 Not Given Q24HR@2100 ENEIDA Tamsulosin HCl 0.4 mg 10/16/20 10:00 10/17/20 10:19 Tamsulosin 0.4 Mg Cap PO 0.4 mg QDAY ENEIDA Administration
--- NOTE | 2020-10-18 09:43 | Electrocardiograph Report ---
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
[2020-10-18] MEDS: EZETIMIBE 10 MG TAB PO SCH (10:15)
[2020-10-18] MEDS: METOPROLOL TARTRATE 25 MG TAB PO SCH (10:15)
[2020-10-18] MEDS: ASPIRIN 81 MG TAB CHEW PO SCH (10:15)
[2020-10-18] MEDS: levETIRAcetam 500 MG TAB PO SCH ×2 (10:16→22:21)
[2020-10-18] MEDS: FINASTERIDE 5 MG TAB PO SCH (10:16)
[2020-10-18] MEDS: CLOPIDOGREL 75 MG TAB PO SCH (10:16)
[2020-10-18] MEDS: amLODIPine 10 MG TAB PO SCH (10:16)
[2020-10-18] MEDS: DIVALPROEX DR 500 MG TAB PO SCH (10:16)
[2020-10-18] MEDS: LISINOPRIL 10 MG TAB PO SCH (10:16)
[2020-10-18] MEDS: TAMSULOSIN 0.4 MG CAP PO SCH (10:16)
[2020-10-18] MEDS: FAMOTIDINE 20 MG TAB PO SCH ×2 (10:17→16:43)
[2020-10-18] MEDS: dexAMETHasone 4 MG/ML VIAL IV SCH (10:18)
--- NOTE | 2020-10-18 14:28 | Progress Note ---
Assessment and Plan 75 y/o male with acute respiratory failure secondary to COVID pneumonia. 10/18/20: Continue steroids, continue remdesivir. Still would prone patient despite not being on oxygen therapy. Suggest ambulatory if able in the next 2-3 days. Defer to ID on how long IV remdesivir will be needed. Will continue to follow. 1. Suggest Remdesivir 2. Continue supplemental oxygen 3. Steroids for 10 days 4. Despite low oxygen requirements, needs to prone 5. Guarded prognosis. Subjective Date of service: 10/18/20 Interval history: Weaned to room air. Stable sats. On therapy for COVID Objective Vital Signs - 12hr 10/18/20 10/18/20 10/18/20 05:49 10:15 10:16 Temperature 97.6 F Pulse Rate 70 70 70 Respiratory 18 Rate Blood Pressure 113/60 113/60 113/60 O2 Sat by Pulse 94 Oximetry 10/18/20 10:45 Temperature Pulse Rate Respiratory Rate Blood Pressure O2 Sat by Pulse 95 Oximetry Constitutional: no acute distress, alert Neck: supple Effort: normal Ascultation: Bilateral: clear CBC and BMP: 10/18/20 03:48 10/18/20 03:48 ABG, PT/INR, D-dimer: PT/INR, D-dimer PT 14.0 Sec. (12.2-14.9) 10/15/20 23:29 INR 1.02 (0.87-1.13) 10/15/20 23:29 D-Dimer 204.41 ng/mlDDU (0-234) 10/17/20 17:01 Abnormal lab findings: Abnormal Labs 10/15/20 10/15/20 10/15/20 23:29 23:29 23:29 WBC RBC 5.17 H Hgb 15.8 H Hct 46.0 H MCHC Lymph % (Auto) 7.4 L [place] % (Auto) 13.4 H Lymph # (Auto) 0.5 L Seg Neutrophils % 78.8 H Seg Neuts % (Manual) Lymphocytes % (Manual) Monocytes % (Manual) Lymphocytes # (Manual) D-Dimer 885.91 H Sodium 129 L Potassium Chloride 89.7 L BUN Creatinine 1.9 H Glucose 113 H POC Glucose Lactic Acid Calcium Ferritin AST 61 H Lactate Dehydrogenase 289 H C-Reactive Protein 4.40 H Total Protein Albumin Coronavirus (PCR) 10/15/20 10/15/20 10/16/20 23:29 23:29 16:27 WBC RBC Hgb Hct MCHC Lymph % (Auto) [place] % (Auto) Lymph # (Auto) Seg Neutrophils % Seg Neuts % (Manual) Lymphocytes % (Manual) Monocytes % (Manual) Lymphocytes # (Manual) D-Dimer Sodium Potassium Chloride BUN Creatinine Glucose POC Glucose 131 H Lactic Acid 2.80 H* Calcium Ferritin 578.4 H AST Lactate Dehydrogenase C-Reactive Protein Total Protein Albumin Coronavirus (PCR) 10/16/20 10/17/20 10/17/20 Unknown 03:23 03:23 WBC 3.5 L RBC Hgb Hct MCHC 35 H Lymph % (Auto) [place] % (Auto) Lymph # (Auto) Seg Neutrophils % Seg Neuts % (Manual) 80.0 H Lymphocytes % (Manual) 10.0 L Monocytes % (Manual) 9.0 H Lymphocytes # (Manual) 0.4 L D-Dimer Sodium 133 L Potassium Chloride 97.2 L BUN 22 H Creatinine 1.5 H Glucose 136 H POC Glucose Lactic Acid Calcium 8.1 L Ferritin AST Lactate Dehydrogenase C-Reactive Protein Total Protein Albumin Coronavirus (PCR) Positive A 10/17/20 10/17/20 10/17/20 17:01 17:01 17:01 WBC RBC Hgb Hct MCHC Lymph % (Auto) [place] % (Auto) Lymph # (Auto) Seg Neutrophils % Seg Neuts % (Manual) Lymphocytes % (Manual) Monocytes % (Manual) Lymphocytes # (Manual) D-Dimer Sodium 131 L Potassium Chloride 95.7 L BUN 23 H Creatinine Glucose 137 H POC Glucose Lactic Acid Calcium Ferritin 541.4 H AST 66 H Lactate Dehydrogenase 221 H C-Reactive Protein 1.80 H Total Protein Albumin 3.2 L Coronavirus (PCR) 10/18/20 03:48 WBC RBC Hgb Hct MCHC Lymph % (Auto) [place] % (Auto) Lymph # (Auto) Seg Neutrophils % Seg Neuts % (Manual) Lymphocytes % (Manual) Monocytes % (Manual) Lymphocytes # (Manual) D-Dimer Sodium Potassium 5.3 H Chloride BUN 23 H Creatinine Glucose 118 H POC Glucose Lactic Acid Calcium 8.1 L Ferritin AST 59 H Lactate Dehydrogenase C-Reactive Protein Total Protein 6.1 L Albumin 3.2 L Coronavirus (PCR)
--- NOTE | 2020-10-18 16:21 | Progress Note ---
Assessment and Plan Cultures: Blood culture 10/16/2020 no growth SARS CoV2 PCR positive Assessment: 75-year-old male with history of hypertension, dementia, CAD, admitted on 10/16/2020 secondary to a week history of generalized malaise, fatigue, body aches, cough and progressive shortness of breath: #Severe sepsis: Present on admission with tachycardia, hypoxia, fever, elevated lactate, elevated creatinine; likely secondary to COVID-19. Procalcitonin elevated in the setting of renal failure. #Severe COVID pneumonia: CXR with bilateral pneumonia. Infllammatory markers elevated. CRP 4.4. Ferritin 578. D-dimer 885. #Acute hypoxemic respiratory failure: #JIE: Initial creatinine 1.9. Recommendations: -Patient is now on room air, check exercise pulse oximeter - O2 sats after 6 mi nutes walk test inside room, if patient passes okay to discharge after today's remdesivir dose -Continue dexamethasone daily for 10 days -Continue remdesivir for 5 days (CrCl>30 mg/mL)-no need to complete 5 days -Monitor inflammatory markers - ferritin, Ddimer, CRP, LDH -Monitor liver function test on Remdesivir -Continue anticoagulation per System Protocol -Prone positioning as possible -Ceftriaxone for 5 days and azithromycin for 3 days, if ready to discharge okay to change to doxycycline 100 mg p.o. twice a day total 5 days. -Check UA patient complaining of dysuria will sign off ok to dc Mariangel Gorman MD Infectious Diseases [employer] [facility] [phone] O [phone] Subjective Date of service: 10/18/20 Interval history: He is now on room air, no desaturations, no fever. Objective - Constitutional Vitals: Vital Signs Temp Pulse Resp BP Pulse Ox 97.6 F 70 18 113/60 95 10/18/20 05:49 10/18/20 10:16 10/18/20 05:49 10/18/20 10:16 10/18/20 10:45 Temperature -Last 24 Hours Temperature 97.6 F Temperature 98.4 F - Labs CBC & Chem 7: 10/18/20 03:48 10/18/20 03:48 Labs: Abnormal lab results 10/17/20 10/17/20 10/17/20 Range/Units 17:01 17:01 17:01 Sodium 131 L (137-145) mmol/L Potassium (3.6-5.0) mmol/L Chloride 95.7 L (98-107) mmol/L BUN 23 H (9-20) mg/dL Glucose 137 H (75-100) mg/dL Calcium (8.4-10.2) mg/dL Ferritin 541.4 H (30.0-300.0) ng/mL AST 66 H (5-40) units/L Lactate Dehydrogenase 221 H (91-180) units/L C-Reactive Protein 1.80 H (0.00-1.30) mg/dL Total Protein (6.3-8.2) g/dL Albumin 3.2 L (3.9-5) g/dL 10/18/20 Range/Units 03:48 Sodium (137-145) mmol/L Potassium 5.3 H (3.6-5.0) mmol/L Chloride (98-107) mmol/L BUN 23 H (9-20) mg/dL Glucose 118 H (75-100) mg/dL Calcium 8.1 L (8.4-10.2) mg/dL Ferritin (30.0-300.0) ng/mL AST 59 H (5-40) units/L Lactate Dehydrogenase (91-180) units/L C-Reactive Protein (0.00-1.30) mg/dL Total Protein 6.1 L (6.3-8.2) g/dL Albumin 3.2 L (3.9-5) g/dL
[2020-10-18] MEDS: REMDESIVIR 100 MG in SODIUM CHLORIDE 0.9% 250ML 250 ML IV SCH (21:00)
[2020-10-19] MEDS: cefTRIAXone/NS 2 GM/100 ML 2 GM/100 ML BAG IV SCH (01:10)
[2020-10-19] MEDS: AZITHROMYCIN/NS 500 MG/250 ML 500 MG/250 ML BAG IV SCH (02:10)
[2020-10-19] MEDS: HEPARIN 5,000 UNIT/1 ML VIAL SUB-Q SCH ×3 (05:49→22:03)
[2020-10-19 06:36] LABS: Hematocrit 35.5 % (35.5-45.6); Hemoglobin 12.2 gm/dl (11.8-15.2); Mean Corpuscular HGB Conc 34 % (32-34); Mean Corpuscular Volume 89 fl (84-94); Platelet Count 199 K/mm3 (140-440); Red Blood Count 3.98 M/mm3 (3.65-5.03); Red Cell Distribution Width 14.2 % (13.2-15.2)
[2020-10-19 06:48] LABS: Albumin 3.2 g/dL (3.9-5); Calcium 8.4 mg/dL (8.4-10.2)
--- NOTE | 2020-10-19 10:36 | Progress Note ---
Assessment and Plan 75 y/o male with acute respiratory failure secondary to COVID pneumonia. 10/19/20: COntinue steroids for 10 days total. Proning should continue no matter what. Suggest walk test prior to discharge to assess oxygen needs if any. Will see PRN 10/18/20: Continue steroids, continue remdesivir. Still would prone patient despite not being on oxygen therapy. Suggest ambulatory if able in the next 2-3 days. Defer to ID on how long IV remdesivir will be needed. Will continue to follow. 1. Suggest Remdesivir 2. Continue supplemental oxygen 3. Steroids for 10 days 4. Despite low oxygen requirements, needs to prone 5. Guarded prognosis. Subjective Date of service: 10/19/20 Interval history: Patient now weaned to room air. Good sats. Objective Vital Signs - 12hr 10/18/20 10/19/20 10/19/20 23:18 01:36 05:28 Temperature 98.5 F 98.7 F Pulse Rate 78 77 Respiratory 18 18 Rate Blood Pressure 90/38 104/42 O2 Sat by Pulse 95 95 94 Oximetry 10/19/20 10:08 Temperature Pulse Rate Respiratory Rate Blood Pressure O2 Sat by Pulse 92 Oximetry Constitutional: no acute distress, alert Neck: supple Effort: normal Ascultation: Bilateral: clear CBC and BMP: 10/19/20 05:56 10/19/20 05:56 ABG, PT/INR, D-dimer: PT/INR, D-dimer PT 14.0 Sec. (12.2-14.9) 10/15/20 23:29 INR 1.02 (0.87-1.13) 10/15/20 23:29 D-Dimer 204.41 ng/mlDDU (0-234) 10/17/20 17:01 Abnormal lab findings: Abnormal Labs 10/15/20 10/15/20 10/15/20 23:29 23:29 23:29 WBC RBC 5.17 H Hgb 15.8 H Hct 46.0 H MCHC Lymph % (Auto) 7.4 L [place] % (Auto) 13.4 H Lymph # (Auto) 0.5 L Seg Neutrophils % 78.8 H Seg Neuts % (Manual) Lymphocytes % (Manual) Monocytes % (Manual) Lymphocytes # (Manual) D-Dimer 885.91 H Sodium 129 L Potassium Chloride 89.7 L Carbon Dioxide BUN Creatinine 1.9 H Glucose 113 H POC Glucose Lactic Acid Calcium Ferritin AST 61 H Lactate Dehydrogenase 289 H C-Reactive Protein 4.40 H Total Protein Albumin Coronavirus (PCR) 10/15/20 10/15/20 10/16/20 23:29 23:29 16:27 WBC RBC Hgb Hct MCHC Lymph % (Auto) [place] % (Auto) Lymph # (Auto) Seg Neutrophils % Seg Neuts % (Manual) Lymphocytes % (Manual) Monocytes % (Manual) Lymphocytes # (Manual) D-Dimer Sodium Potassium Chloride Carbon Dioxide BUN Creatinine Glucose POC Glucose 131 H Lactic Acid 2.80 H* Calcium Ferritin 578.4 H AST Lactate Dehydrogenase C-Reactive Protein Total Protein Albumin Coronavirus (PCR) 10/16/20 10/17/20 10/17/20 Unknown 03:23 03:23 WBC 3.5 L RBC Hgb Hct MCHC 35 H Lymph % (Auto) [place] % (Auto) Lymph # (Auto) Seg Neutrophils % Seg Neuts % (Manual) 80.0 H Lymphocytes % (Manual) 10.0 L Monocytes % (Manual) 9.0 H Lymphocytes # (Manual) 0.4 L D-Dimer Sodium 133 L Potassium Chloride 97.2 L Carbon Dioxide BUN 22 H Creatinine 1.5 H Glucose 136 H POC Glucose Lactic Acid Calcium 8.1 L Ferritin AST Lactate Dehydrogenase C-Reactive Protein Total Protein Albumin Coronavirus (PCR) Positive A 10/17/20 10/17/20 10/17/20 17:01 17:01 17:01 WBC RBC Hgb Hct MCHC Lymph % (Auto) [place] % (Auto) Lymph # (Auto) Seg Neutrophils % Seg Neuts % (Manual) Lymphocytes % (Manual) Monocytes % (Manual) Lymphocytes # (Manual) D-Dimer Sodium 131 L Potassium Chloride 95.7 L Carbon Dioxide BUN 23 H Creatinine Glucose 137 H POC Glucose Lactic Acid Calcium Ferritin 541.4 H AST 66 H Lactate Dehydrogenase 221 H C-Reactive Protein 1.80 H Total Protein Albumin 3.2 L Coronavirus (PCR) 10/18/20 10/19/20 03:48 05:56 WBC RBC Hgb Hct MCHC Lymph % (Auto) [place] % (Auto) Lymph # (Auto) Seg Neutrophils % Seg Neuts % (Manual) Lymphocytes % (Manual) Monocytes % (Manual) Lymphocytes # (Manual) D-Dimer Sodium Potassium 5.3 H Chloride Carbon Dioxide 31 H BUN 23 H 31 H Creatinine 1.5 H Glucose 118 H POC Glucose Lactic Acid Calcium 8.1 L Ferritin AST 59 H 50 H Lactate Dehydrogenase C-Reactive Protein Total Protein 6.1 L 6.0 L Albumin 3.2 L 3.2 L Coronavirus (PCR)
--- NOTE | 2020-10-19 11:26 | Progress Note ---
Assessment and Plan Assessment and plan: 75 years old male with history of seizure hypertension dementia and CAD was brought to the hospital because of shortness of breath, weakness malaise fatigue and body ache. Patient is not vaccinated against COVID-19 but patient is test is positive for COVID-19 at an outpatient [facility] facility. Patient is found hypoxic. Patient was given a trial of ambulation patient became very symptomatic O2 sat dropped to 67% and patient visit became very tachycardic with a heart rate of 122. Subsequently patient was brought to the emergency room by Her [facility] facility because of symptomatic Covid. Patient normally ambulates with a walker and with a cane. Patient also endorses dysuria. Patient reports significant weakness and difficulty ambulating without assistance We are going to admit the patient as Covid pneumonia hypoxic respiratory failure. We will consult infectious disease and pulmonary for evaluation Med rec is done. Advance discharge process is initiated (1) Acute respiratory failure with hypoxia Status: Acute Plan to address problem: Admit the patient to the medical telemetry. Oxygen via nasal cannula 3 to per minute DuoNeb by nebulizer every 4 hours Rocephin 2 g IV daily. Zithromax 500 mg IV daily. Dexamethasone 6 mg IV daily. Vitamin C 500 mg p.o. twice daily and zinc and vitamin D. Follow Covid inflammatory marker. We also consult infectious disease and pulmonary for evaluation (2) CAD (coronary artery disease) Status: Acute Qualifiers: Coronary Disease-Associated Artery/Lesion type: bypass graft [place] vs. tra nsplanted heart: [place] heart Associated angina: without angina Qualified Code(s): I25.810 - Atherosclerosis of coronary artery bypass graft(s) without angina pectoris Plan to address problem: Stable we will continue the home medication. We will continue Plavix 75 mg p.o. daily. Lipitor 80 mg p.o. daily. Aspirin 81 mg p.o. daily Lopressor 20 mg p.o. daily Imdur 60 mg p.o. daily (3) COVID-19 with sepesis Status: Acute Plan to address problem: Oxygen via nasal cannula 3 to per minute DuoNeb by nebulizer every 4 hours Rocephin 2 g IV daily. Zithromax 500 mg IV daily. Dexamethasone 6 mg IV daily. Vitamin C 500 mg p.o. twice daily and zinc and vitamin D. Follow Covid inflammatory marker. We also consult infectious disease and pulmonary for evaluation (4) Hypertension Status: Acute Plan to address problem: Imdur 60 mg p.o. daily. Hydralazine 10 mill IV every 6 hours as needed we will continue the home medication. We will monitor the blood pressure closely (5) JIE with vasomotor nephropathy Status: Acute Plan to address problem: Avoid nephrotoxic drug. Renally dose medication. We will recheck CBC BMP in the morning (6) DVT prophylaxis Status: Acute Plan to address problem: Heparin 5000 units subcu every 8 hours for DVT prophylaxis. Pepcid 20 mg p.o. twice daily for GI prophylaxis. Patient is a full code 10/17: Patient remains with significant debility, renal function improving, awaiting Physical therapy evaluation and we still need exertion dyspnea. Continue steroids. 10/18; Continue dexamethasone and Remdesivir, Ceftriaxone for 5 days and azithromycin for 3 days ID and pulmonary input noted. Monitor UA as ordered by ID due to complaints of Dysuria. Continue antibcoagulation and encourage to PRONE. Patient is legally blind. Family is also requesting for assistance, will obtain Case management assistance. We will obtain home oxygen evaluation 10/19: Patient clinically stable at this time. Will complete remdesivir dose today. Will reassess in the a.m. with home O2 evaluation which is still pending if not done today. I have discussed with the [facility] flows [facility] and also with the patient's social media sr strategy manager at the [facility] Ms. Matos at phone #[phone] extension [phone]. The [facility] inpatient facility said that they would not accept the patient and also that they are not able to place the patient. Ms. Matos says that she will try group home facility placement. Case management will also communicate this with the patient's daughter. Otherwise patient is clinically stable other management as clearly documented by the specialist anticipate discharge in a.m. History Interval history: Patient seen and examined, no new complaints, patient is on room air still satting 96% I still do not have a home O2 evaluation Hospitalist Physical - Physical exam Narrative exam: - Constitutional General appearance: Present: no acute distress, well-nourished - EENT Eyes: Present: PERRL ENT: hearing intact, clear oral mucosa - Neck Neck: Present: supple, normal ROM - Respiratory Respiratory effort: normal Respiratory: bilateral: diminished - Cardiovascular Heart Sounds: Present: S1 & S2. Absent: rub, click - Extremities Extremities: pulses symmetrical, No edema Peripheral Pulses: within normal limits - Abdominal General gastrointestinal: Present: soft, non-tender, non-distended, normal bowel sounds Male genitourinary: Present: normal - Integumentary Integumentary: Present: clear, warm, dry - Musculoskeletal Musculoskeletal: gait normal, strength equal bilaterally - Psychiatric Psychiatric: appropriate mood/affect, intact judgment & insight - Neurologic Neurologic: CNII-XII intact, other (Patient is awake alert to name and location patient patient has abnormal gait. Patient walks with an unsteady gait and require a person assist) - Constitutional Vitals: Temp Pulse Resp BP Pulse Ox 98.7 F 77 18 104/42 92 10/19/20 05:28 10/19/20 05:28 10/19/20 05:28 10/19/20 05:28 10/19/20 10:08 General appearance: Present: no acute distress, well-nourished Results - Labs CBC & Chem 7: 10/19/20 05:56 10/19/20 05:56 Labs: Laboratory Last Values WBC 7.5 K/mm3 (4.5-11.0) 10/19/20 05:56 RBC 3.98 M/mm3 (3.65-5.03) 10/19/20 05:56 Hgb 12.2 gm/dl (11.8-15.2) 10/19/20 05:56 Hct 35.5 % (35.5-45.6) 10/19/20 05:56 MCV 89 fl (84-94) 10/19/20 05:56 MCH 31 pg (28-32) 10/19/20 05:56 MCHC 34 % (32-34) 10/19/20 05:56 RDW 14.2 % (13.2-15.2) 10/19/20 05:56 Plt Count 199 K/mm3 (140-440) 10/19/20 05:56 Lymph % (Auto) 7.4 % (13.4-35.0) L 10/15/20 23:29 [place] % (Auto) General Lot Attendant 10/17/20 03:23 Eos % (Auto) 0.0 % (0.0-4.3) 10/15/20 23:29 Baso % (Auto) 0.4 % (0.0-1.8) 10/15/20 23:29 Lymph # (Auto) 0.5 K/mm3 (1.2-5.4) L 10/15/20 23:29 [place] # (Auto) 0.8 K/mm3 (0.0-0.8) 10/15/20 23:29 Eos # (Auto) 0.0 K/mm3 (0.0-0.4) 10/15/20 23:29 Baso # (Auto) 0.0 K/mm3 (0.0-0.1) 10/15/20 23:29 Add Manual Diff Complete 10/17/20 03:23 Total Counted 100 10/17/20 03:23 Seg Neutrophils % 78.8 % (40.0-70.0) H 10/15/20 23:29 Seg Neuts % (Manual) 80.0 % (40.0-70.0) H 10/17/20 03:23 Band Neutrophils % 1.0 % 10/17/20 03:23 Lymphocytes % (Manual) 10.0 % (13.4-35.0) L 10/17/20 03:23 Monocytes % (Manual) 9.0 % (0.0-7.3) H 10/17/20 03:23 Nucleated RBC % Not Reportable 10/17/20 03:23 Seg Neutrophils # 4.9 K/mm3 (1.8-7.7) 10/15/20 23:29 Seg Neutrophils # Man 2.8 K/mm3 (1.8-7.7) 10/17/20 03:23 Band Neutrophils # 0.0 K/mm3 10/17/20 03:23 Lymphocytes # (Manual) 0.4 K/mm3 (1.2-5.4) L 10/17/20 03:23 Abs React Lymphs (Man) 0.0 K/mm3 10/17/20 03:23 Monocytes # (Manual) 0.3 K/mm3 (0.0-0.8) 10/17/20 03:23 Eosinophils # (Manual) 0.0 K/mm3 (0.0-0.4) 10/17/20 03:23 Basophils # (Manual) 0.0 K/mm3 (0.0-0.1) 10/17/20 03:23 Metamyelocytes # 0.0 K/mm3 10/17/20 03:23 Myelocytes # 0.0 K/mm3 10/17/20 03:23 Promyelocytes # 0.0 K/mm3 10/17/20 03:23 Blast Cells # 0.0 K/mm3 10/17/20 03:23 WBC Morphology Not Reportable 10/17/20 03:23 Hypersegmented Neuts Not Reportable 10/17/20 03:23 Hyposegmented Neuts Not Reportable 10/17/20 03:23 Hypogranular Neuts Not Reportable 10/17/20 03:23 Smudge Cells Not Reportable 10/17/20 03:23 Toxic Granulation Not Reportable 10/17/20 03:23 Toxic Vacuolation Not Reportable 10/17/20 03:23 Dohle Bodies Not Reportable 10/17/20 03:23 Pelger-Huet Anomaly Not Reportable 10/17/20 03:23 Luisa Rods Not Reportable 10/17/20 03:23 Platelet Estimate Consistent w auto 10/17/20 03:23 Clumped Platelets Not Reportable 10/17/20 03:23 Plt Clumps, EDTA Not Reportable 10/17/20 03:23 Large Platelets Not Reportable 10/17/20 03:23 Giant Platelets Not Reportable 10/17/20 03:23 Platelet Satelliting Not Reportable 10/17/20 03:23 Plt Morphology Comment Not Reportable 10/17/20 03:23 RBC Morphology Not Reportable 10/17/20 03:23 Dimorphic RBCs Not Reportable 10/17/20 03:23 Polychromasia Not Reportable 10/17/20 03:23 Hypochromasia Not Reportable 10/17/20 03:23 Poikilocytosis Not Reportable 10/17/20 03:23 Anisocytosis 1+ 10/17/20 03:23 Microcytosis Not Reportable 10/17/20 03:23 Macrocytosis Not Reportable 10/17/20 03:23 Spherocytes Not Reportable 10/17/20 03:23 Pappenheimer Bodies Not Reportable 10/17/20 03:23 Sickle Cells Not Reportable 10/17/20 03:23 Target Cells Not Reportable 10/17/20 03:23 Tear Drop Cells Not Reportable 10/17/20 03:23 Ovalocytes Not Reportable 10/17/20 03:23 Helmet Cells Not Reportable 10/17/20 03:23 Dickinson-Altheimer Bodies Not Reportable 10/17/20 03:23 [place] Rings Not Reportable 10/17/20 03:23 [place] Cells Not Reportable 10/17/20 03:23 Bite Cells Not Reportable 10/17/20 03:23 Crenated Cell Not Reportable 10/17/20 03:23 Elliptocytes Not Reportable 10/17/20 03:23 Acanthocytes (Spur) Not Reportable 10/17/20 03:23 Rouleaux Not Reportable 10/17/20 03:23 Hemoglobin C Crystals Not Reportable 10/17/20 03:23 Schistocytes Not Reportable 10/17/20 03:23 Malaria parasites Not Reportable 10/17/20 03:23 [address] Bodies Not Reportable 10/17/20 03:23 Hem Pathologist Commnt No 10/17/20 03:23 PT 14.0 Sec. (12.2-14.9) 10/15/20 23:29 INR 1.02 (0.87-1.13) 10/15/20 23:29 APTT 33.7 Sec. (24.2-36.6) 10/15/20 23:29 D-Dimer 204.41 ng/mlDDU (0-234) 10/17/20 17:01 Sodium 139 mmol/L (137-145) 10/19/20 05:56 Potassium 3.8 mmol/L (3.6-5.0) D 10/19/20 05:56 Chloride 102.0 mmol/L (98-107) 10/19/20 05:56 Carbon Dioxide 31 mmol/L (22-30) H 10/19/20 05:56 Anion Gap 10 mmol/L 10/19/20 05:56 BUN 31 mg/dL (9-20) H 10/19/20 05:56 Creatinine 1.5 mg/dL (0.8-1.3) H 10/19/20 05:56 Estimated GFR 55 ml/min 10/19/20 05:56 BUN/Creatinine Ratio 21 % 10/19/20 05:56 Glucose 100 mg/dL (75-100) 10/19/20 05:56 POC Glucose 131 mg/dL (70-105) H 10/16/20 16:27 Lactic Acid 1.10 mmol/L (0.7-2.0) 10/16/20 04:00 Calcium 8.4 mg/dL (8.4-10.2) 10/19/20 05:56 Magnesium 2.00 mg/dL (1.7-2.3) 10/15/20 23:29 Ferritin 541.4 ng/mL (30.0-300.0) H 10/17/20 17:01 Total Bilirubin 0.20 mg/dL (0.1-1.2) 10/19/20 05:56 AST 50 units/L (5-40) H 10/19/20 05:56 ALT 31 units/L (7-56) 10/19/20 05:56 Alkaline Phosphatase 62 units/L (35-129) 10/19/20 05:56 Lactate Dehydrogenase 221 units/L (91-180) H 10/17/20 17:01 C-Reactive Protein 1.80 mg/dL (0.00-1.30) H 10/17/20 17:01 Total Protein 6.0 g/dL (6.3-8.2) L 10/19/20 05:56 Albumin 3.2 g/dL (3.9-5) L 10/19/20 05:56 Albumin/Globulin Ratio 1.1 % 10/19/20 05:56 Procalcitonin 0.47 ng/mL (<0.15) 10/15/20 23:29 Coronavirus (PCR) Positive (Negative) A 10/16/20 Unknown Microbiology: Microbiology 10/15/20 23:29 Peripheral/Venous Blood Culture - Preliminary NO GROWTH AFTER 48 HOURS 10/16/20 00:08 Peripheral/Venous Blood Culture - Preliminary NO GROWTH AFTER 48 HOURS Mcknight/IV: Voiding Method Condom Catheter Active Medications - Current Medications Current Medications: Generic Name Dose Route Start Last Admin Trade Name Freq PRN Reason Stop Dose Admin Acetaminophen 650 mg 10/16/20 00:38 10/16/20 07:06 Acetaminophen 325 Mg Tab PO 650 mg Q4H PRN Administration Pain MILD(1-3)/Fever >100.5/CARBALLO Albuterol 2.5 mg 10/17/20 08:58 Albuterol 2.5 Mg/3 Ml Nebu IH Q4HRT PRN Shortness Of Breath Amlodipine Besylate 10 mg 10/16/20 10:00 10/18/20 10:16 Amlodipine 10 Mg Tab PO 10 mg DAILY ENEIDA Administration Aspirin 81 mg 10/16/20 10:00 10/18/20 10:15 Aspirin 81 Mg Tab Chew PO 81 mg QDAY ENEIDA Administration Atorvastatin Calcium 80 mg 10/16/20 22:00 10/18/20 22:21 Atorvastatin 40 Mg Tab PO 80 mg QHS ENEIDA Administration Clopidogrel Bisulfate 75 mg 10/16/20 10:00 10/18/20 10:16 Clopidogrel 75 Mg Tab PO 75 mg QDAY ENEIDA Administration Dexamethasone 6 mg 10/19/20 10:30 Dexamethasone 4 Mg Tab PO 10/25/20 12:00 DAILY ENEIDA Divalproex Sodium 1,000 mg 10/16/20 10:00 10/18/20 10:[address] 500 Mg Tab PO 1,000 mg DAILY ENEIDA Administration Ezetimibe 10 mg 10/16/20 10:00 10/18/20 10:15 Ezetimibe 10 Mg Tab PO 10 mg QDAY ENEIDA Administration Famotidine 20 mg 10/18/20 09:00 10/18/20 16:43 Famotidine 20 Mg Tab PO 20 mg BIDAC ENEIDA Administration Finasteride 5 mg 10/16/20 10:00 10/18/20 10:16 Finasteride 5 Mg Tab PO 5 mg QDAY ENEIDA Administration Heparin Sodium (Porcine) 5,000 unit 10/16/20 06:00 10/19/20 05:49 Heparin 5,000 Unit/1 Ml Vial SUB-Q 5,000 unit Q8HR ENEIDA Administration Hydralazine HCl 10 mg 10/16/20 00:41 Hydralazine 20 Mg/1 Ml Inj IV Q6H PRN Blood Pressure Hydromorphone HCl 0.5 mg 10/16/20 00:38 Hydromorphone 1 Mg/1 Ml Inj IV Q3H PRN Pain , Severe (7-10) Ceftriaxone Sodium 2 gm in 100 mls @ 200 mls/hr 10/17/20 01:00 10/19/20 01:10 Rocephin/Ns 2 Gm/100 Ml IV 10/21/20 01:29 200 mls/hr Q24H ENEIDA Administration Protocol REMDESIVIR 100 mg/ Sodium 250 mls @ 500 mls/hr 10/18/20 21:00 10/18/20 21:00 Chloride IV 10/21/20 21:29 500 mls/hr Q24HR@2100 ENEIDA Administration Isosorbide Mononitrate 60 mg 10/16/20 10:00 10/18/20 10:15 Isosorbide Mononitrate Er 60 Mg Tab PO 60 mg QDAY ENEIDA Administration Levetiracetam 500 mg 10/16/20 10:00 10/18/20 22:21 Levetiracetam 500 Mg Tab PO 500 mg BID ENEIDA Administration Lisinopril 10 mg 10/16/20 10:00 10/18/20 10:16 Lisinopril 10 Mg Tab PO 10 mg QDAY ENEIDA Administration Metoprolol Tartrate 25 mg 10/16/20 10:00 10/18/20 10:15 Metoprolol Tartrate 25 Mg Tab PO 25 mg QDAY ENEIDA Administration Ondansetron HCl 4 mg 10/16/20 00:38 Ondansetron 4 Mg/2 Ml Inj IV Q8H PRN Nausea And Vomiting Oxycodone/Acetaminophen 1 tab 10/16/20 00:38 Oxycodone /Acetaminophen 5-325mg Tab PO Q6H PRN Pain, Moderate (4-6) Sodium Chloride 10 ml 10/16/20 10:00 10/18/20 22:22 Sodium Chloride 0.9% 10 Ml Flush Syringe IV 10 ml BID ENEIDA Administration Sodium Chloride 10 ml 10/16/20 00:38 Sodium Chloride 0.9% 10 Ml Flush Syringe IV PRN PRN LINE FLUSH Sodium Chloride 50 ml 10/17/20 21:00 10/18/20 21:45 Sodium Chloride 0.9% 50 Ml Ivpb IV 10/21/20 21:01 50 ml Q24HR@2100 ENEIDA Administration Tamsulosin HCl 0.4 mg 10/16/20 10:00 10/18/20 10:16 Tamsulosin 0.4 Mg Cap PO 0.4 mg QDAY ENEIDA Administration
[2020-10-19] MEDS: EZETIMIBE 10 MG TAB PO SCH (12:21)
[2020-10-19] MEDS: CLOPIDOGREL 75 MG TAB PO SCH (12:22)
[2020-10-19] MEDS: DEXAMETHASONE 4 MG TAB PO SCH (12:22)
[2020-10-19] MEDS: amLODIPine 10 MG TAB PO SCH (12:22)
[2020-10-19] MEDS: FAMOTIDINE 20 MG TAB PO SCH ×2 (12:22→17:27)
[2020-10-19] MEDS: ASPIRIN 81 MG TAB CHEW PO SCH (12:22)
[2020-10-19] MEDS: METOPROLOL TARTRATE 25 MG TAB PO SCH (12:22)
[2020-10-19] MEDS: FINASTERIDE 5 MG TAB PO SCH (12:22)
[2020-10-19] MEDS: levETIRAcetam 500 MG TAB PO SCH ×2 (12:23→22:03)
[2020-10-19] MEDS: TAMSULOSIN 0.4 MG CAP PO SCH (12:57)
[2020-10-19] MEDS: LISINOPRIL 10 MG TAB PO SCH (12:58)
[2020-10-19] MEDS: DIVALPROEX DR 500 MG TAB PO SCH (12:58)
[2020-10-19] MEDS: SODIUM CHLORIDE 0.9% 50 ML IVPB IV SCH (22:05)
[2020-10-19] MEDS: REMDESIVIR 100 MG in SODIUM CHLORIDE 0.9% 250ML 250 ML IV SCH (22:05)
[2020-10-20] MEDS: cefTRIAXone/NS 2 GM/100 ML 2 GM/100 ML BAG IV SCH (00:42)
[2020-10-20 04:38] LABS: Alanine Aminotransferase 47 units/L (7-56); Albumin 3.3 g/dL (3.9-5); BUN/Creatinine Ratio 22; Blood Urea Nitrogen 26 mg/dL (9-20); Calcium 8.3 mg/dL (8.4-10.2); Hemolysis Index 4
[2020-10-20 05:05] VITALS: BP 103/54
[2020-10-20] MEDS: HEPARIN 5,000 UNIT/1 ML VIAL SUB-Q SCH (06:06)
[2020-10-20] MEDS: FAMOTIDINE 20 MG TAB PO SCH (08:25)
--- NOTE | 2020-10-20 08:31 | Discharge Summary ---
Providers - Providers Date of Admission: 10/16/20 08:08 Attending physician: JULIEN RAHMAN MD 10/15/20 23:22 Consult to Physician [CONS] Routine Comment: Consulting Provider: HALLIE YUEN Physician Instructions: Reason For Exam: covid 10/16/20 00:38 Consult to Physician [CONS] Routine Comment: Consulting Provider: EN SALAZAR Physician Instructions: Reason For Exam: Covid 10/16/20 08:06 Occupational Therapy Evaluate and Treat [CONS] Routine Comment: Reason For Exam: debility Physical Therapy Evaluation and Treat [CONS] Routine Comment: Reason For Exam: debility Primary care physician: BLOOD COORDINATOR Hospitalization Reason for admission: shortness of breath Condition: Stable Hospital course: 75 years old male with history of seizure hypertension dementia and CAD was brought to the hospital because of shortness of breath, weakness malaise fatigue and body ache. Patient is not vaccinated against COVID-19 but patient is test is positive for COVID-19 at an outpatient [facility] facility. Patient is found hypoxic. Patient was given a trial of ambulation patient became very symptomatic O2 sat dropped to 67% and patient visit became very tachycardic with a heart rate of 122. Subsequently patient was brought to the emergency room by Her [facility] facility because of symptomatic Covid. Patient normally ambulates with a walker and with a cane. Patient also endorses dysuria. Patient reports significant weakness and difficulty ambulating without assistance We are going to admit the patient as Covid pneumonia hypoxic respiratory failure. We will consult infectious disease and pulmonary for evaluation Med rec is done. Advance discharge process is initiated (1) Acute respiratory failure with hypoxia Status: Acute Plan to address problem: Admit the patient to the medical telemetry. Oxygen via nasal cannula 3 to per minute DuoNeb by nebulizer every 4 hours Rocephin 2 g IV daily. Zithromax 500 mg IV daily. Dexamethasone 6 mg IV daily. Vitamin C 500 mg p.o. twice daily and zinc and vitamin D. Follow Covid inflammatory marker. We also consult infectious disease and pulmonary for evaluation (2) CAD (coronary artery disease) Status: Acute Qualifiers: Coronary Disease-Associated Artery/Lesion type: bypass graft [place] vs. transplanted heart: [place] heart Associated angina: without angina Qualified Code(s): I25.810 - Atherosclerosis of coronary artery bypass graft(s) without angina pectoris Plan to address problem: Stable we will continue the home medication. We will continue Plavix 75 mg p.o. daily. Lipitor 80 mg p.o. daily. Aspirin 81 mg p.o. daily Lopressor 20 mg p.o. daily Imdur 60 mg p.o. daily (3) COVID-19 with sepesis Status: Acute Plan to address problem: Oxygen via nasal cannula 3 to per minute DuoNeb by nebulizer every 4 hours Rocephin 2 g IV daily. Zithromax 500 mg IV daily. Dexamethasone 6 mg IV daily. Vitamin C 500 mg p.o. twice daily and zinc and vitamin D. Follow Covid inflammatory marker. We also consult infectious disease and pulmonary for evaluation (4) Hypertension Status: Acute Plan to address problem: Imdur 60 mg p.o. daily. Hydralazine 10 mill IV every 6 hours as needed we will continue the home medication. We will monitor the blood pressure closely (5) JIE with vasomotor nephropathy Status: Acute Plan to address problem: Avoid nephrotoxic drug. Renally dose medication. We will recheck CBC BMP in the morning (6) DVT prophylaxis Status: Acute Plan to address problem: Heparin 5000 units subcu every 8 hours for DVT prophylaxis. Pepcid 20 mg p.o. twice daily for GI prophylaxis. Patient is a full code 10/17: Patient remains with significant debility, renal function improving, awaiting Physical therapy evaluation and we still need exertion dyspnea. Continue steroids. 10/18; Continue dexamethasone and Remdesivir, Ceftriaxone for 5 days and azithromycin for 3 days ID and pulmonary input noted. Monitor UA as ordered by ID due to complaints of Dysuria. Continue antibcoagulation and encourage to PRONE. Patient is legally blind. Family is also requesting for assistance, will obtain Case management assistance. We will obtain home oxygen evaluation 10/19: Patient clinically stable at this time. Will complete remdesivir dose today. Will reassess in the a.m. with home O2 evaluation which is still pending if not done today. I have discussed with the [place] flows line center and also with the patient's elementary school social worker at the [place] Ms. Matos at phone #[phone] extension [phone]. The [place] inpatient facility said that they would not accept the patient and also that they are not able to place the patient. Ms. Matos says that she will try nursing home facility placement. Case management will also communicate this with the patient's daughter. Otherwise patient is clinically stable other management as clearly documented by the specialist anticipate discharge in a.m. 10/20: Patient on evaluation does not have any acute distress. stable for discharge, no oxygen required. Disposition: 03 LONG TERM [facility] Final Discharge Diagnosis (Prints w/discharge instructions): COVID 19 PNEUMONIA WITH Hypoxic Respiratory Failure Time spent for discharge: 35 mins Core Measure Documentation - Palliative Care Palliative Care/ Comfort Measures: Not Applicable - Core Measures Any of the following diagnoses?: none Exam - Physical Exam Narrative exam: - Constitutional General appearance: Present: no acute distress, well-nourished - EENT Eyes: Present: PERRL ENT: hearing intact, clear oral mucosa - Neck Neck: Present: supple, normal ROM - Respiratory Respiratory effort: normal Respiratory: bilateral: diminished - Cardiovascular Heart Sounds: Present: S1 & S2. Absent: rub, click - Extremities Extremities: pulses symmetrical, No edema Peripheral Pulses: within normal limits - Abdominal General gastrointestinal: Present: soft, non-tender, non-distended, normal bowel sounds Male genitourinary: Present: normal - Integumentary Integumentary: Present: clear, warm, dry - Musculoskeletal Musculoskeletal: gait normal, strength equal bilaterally - Psychiatric Psychiatric: appropriate mood/affect, intact judgment & insight - Neurologic Neurologic: CNII-XII intact, other (Patient is awake alert to name and location patient patient has abnormal gait. Patient walks with an unsteady gait and require a person assist) - Constitutional Vitals: Temp Pulse Resp BP Pulse Ox 97.8 F 63 18 103/54 95 10/20/20 04:28 10/20/20 04:28 10/20/20 04:28 10/20/20 04:28 10/20/20 04:28 Plan Activity: advance as tolerated, fall precautions Diet: low fat Special Instructions: record daily weights, record daily BP diary, record blood sugar diary, home oxygen via (nasal cannula @ 3 liters per minute) Follow up with: KAI MARTÍNEZ MD [Primary Care Provider] - 7 Days ERNESTO ROGERS MD [Staff Physician] - 7 Days DENISE REEVES MD [Staff Physician] - 7 Days Prescriptions: dexAMETHasone [Dexamethasone] 6 mg PO DAILY #6 tablet Famotidine [Pepcid] 20 mg PO BIDAC #60 tablet DOXYCYCLINE Hyclate [Vibramycin CAP] 100 mg PO Q12HR #5 capsule
[2020-10-20] MEDS: levETIRAcetam 500 MG TAB PO SCH (09:41)
[2020-10-20] MEDS: DIVALPROEX DR 500 MG TAB PO SCH (09:41)
[2020-10-20] MEDS: CLOPIDOGREL 75 MG TAB PO SCH (09:42)
[2020-10-20] MEDS: EZETIMIBE 10 MG TAB PO SCH (09:42)
[2020-10-20] MEDS: LISINOPRIL 10 MG TAB PO SCH (09:42)
[2020-10-20] MEDS: METOPROLOL TARTRATE 25 MG TAB PO SCH (09:42)
[2020-10-20] MEDS: ASPIRIN 81 MG TAB CHEW PO SCH (09:42)
[2020-10-20] MEDS: DEXAMETHASONE 4 MG TAB PO SCH (09:42)
[2020-10-20] MEDS: amLODIPine 10 MG TAB PO SCH (09:42)
[2020-10-20] MEDS: TAMSULOSIN 0.4 MG CAP PO SCH (09:42)
[2020-10-20] MEDS: FINASTERIDE 5 MG TAB PO SCH (09:48)
--- NOTE | 2020-10-20 12:41 | Progress Note ---
Assessment and Plan 75 y/o male with acute respiratory failure secondary to COVID pneumonia. 10/20/20: No new recs. Agree with discharge. 10/19/20: COntinue steroids for 10 days total. Proning should continue no matter what. Suggest walk test prior to discharge to assess oxygen needs if any. Will see PRN 10/18/20: Continue steroids, continue remdesivir. Still would prone patient despite not being on oxygen therapy. Suggest ambulatory if able in the next 2-3 days. Defer to ID on how long IV remdesivir will be needed. Will continue to follow. 1. Suggest Remdesivir 2. Continue supplemental oxygen 3. Steroids for 10 days 4. Despite low oxygen requirements, needs to prone 5. Guarded prognosis. Subjective Date of service: 10/20/20 Interval history: Stable, being discharged today. Objective Vital Signs - 12hr 10/20/20 10/20/20 01:16 04:28 Temperature 97.8 F Pulse Rate 63 Respiratory 18 Rate Blood Pressure 103/54 O2 Sat by Pulse 94 95 Oximetry Constitutional: no acute distress, alert Neck: supple Effort: normal Ascultation: Bilateral: clear CBC and BMP: 10/19/20 05:56 10/20/20 03:28 ABG, PT/INR, D-dimer: PT/INR, D-dimer PT 14.0 Sec. (12.2-14.9) 10/15/20 23:29 INR 1.02 (0.87-1.13) 10/15/20 23:29 D-Dimer 204.41 ng/mlDDU (0-234) 10/17/20 17:01 Abnormal lab findings: Abnormal Labs 10/15/20 10/15/20 10/15/20 23:29 23:29 23:29 WBC RBC 5.17 H Hgb 15.8 H Hct 46.0 H MCHC Lymph % (Auto) 7.4 L [place] % (Auto) 13.4 H Lymph # (Auto) 0.5 L Seg Neutrophils % 78.8 H Seg Neuts % (Manual) Lymphocytes % (Manual) Monocytes % (Manual) Lymphocytes # (Manual) D-Dimer 885.91 H Sodium 129 L Potassium Chloride 89.7 L Carbon Dioxide BUN Creatinine 1.9 H Glucose 113 H POC Glucose Lactic Acid Calcium Ferritin AST 61 H Lactate Dehydrogenase 289 H C-Reactive Protein 4.40 H Total Protein Albumin Coronavirus (PCR) 10/15/20 10/15/20 10/16/20 23:29 23:29 16:27 WBC RBC Hgb Hct MCHC Lymph % (Auto) [place] % (Auto) Lymph # (Auto) Seg Neutrophils % Seg Neuts % (Manual) Lymphocytes % (Manual) Monocytes % (Manual) Lymphocytes # (Manual) D-Dimer Sodium Potassium Chloride Carbon Dioxide BUN Creatinine Glucose POC Glucose 131 H Lactic Acid 2.80 H* Calcium Ferritin 578.4 H AST Lactate Dehydrogenase C-Reactive Protein Total Protein Albumin Coronavirus (PCR) 10/16/20 10/17/20 10/17/20 Unknown 03:23 03:23 WBC 3.5 L RBC Hgb Hct MCHC 35 H Lymph % (Auto) [place] % (Auto) Lymph # (Auto) Seg Neutrophils % Seg Neuts % (Manual) 80.0 H Lymphocytes % (Manual) 10.0 L Monocytes % (Manual) 9.0 H Lymphocytes # (Manual) 0.4 L D-Dimer Sodium 133 L Potassium Chloride 97.2 L Carbon Dioxide BUN 22 H Creatinine 1.5 H Glucose 136 H POC Glucose Lactic Acid Calcium 8.1 L Ferritin AST Lactate Dehydrogenase C-Reactive Protein Total Protein Albumin Coronavirus (PCR) Positive A 10/17/20 10/17/20 10/17/20 17:01 17:01 17:01 WBC RBC Hgb Hct MCHC Lymph % (Auto) [place] % (Auto) Lymph # (Auto) Seg Neutrophils % Seg Neuts % (Manual) Lymphocytes % (Manual) Monocytes % (Manual) Lymphocytes # (Manual) D-Dimer Sodium 131 L Potassium Chloride 95.7 L Carbon Dioxide BUN 23 H Creatinine Glucose 137 H POC Glucose Lactic Acid Calcium Ferritin 541.4 H AST 66 H Lactate Dehydrogenase 221 H C-Reactive Protein 1.80 H Total Protein Albumin 3.2 L Coronavirus (PCR) 10/18/20 10/19/20 10/20/20 03:48 05:56 03:28 WBC RBC Hgb Hct MCHC Lymph % (Auto) [place] % (Auto) Lymph # (Auto) Seg Neutrophils % Seg Neuts % (Manual) Lymphocytes % (Manual) Monocytes % (Manual) Lymphocytes # (Manual) D-Dimer Sodium Potassium 5.3 H Chloride Carbon Dioxide 31 H BUN 23 H 31 H 26 H Creatinine 1.5 H Glucose 118 H 141 H POC Glucose Lactic Acid Calcium 8.1 L 8.3 L Ferritin AST 59 H 50 H 62 H Lactate Dehydrogenase C-Reactive Protein Total Protein 6.1 L 6.0 L Albumin 3.2 L 3.2 L 3.3 L Coronavirus (PCR)
== END 2020-10-20 10:45 | DRG 871 ==
LOC: ED 22:48 → 3A 10-16 00:38 → INTOOBSV 10-16 08:07 → OBSVTOIN 10-16 08:07 → 3A 10-16 15:13
PROVIDERS: ADMIT Hospitalist; ATTEND Internal Medicine
PROC: XW033E5 Introduction of Remdesivir Anti-infective into Peripheral Vein, Percutaneous Approach, New Technology Group 5 (ICD-10-PCS; principal; 2020-10-17)
DX: A41.89 Other specified sepsis (principal); U07.1 COVID-19; J96.01 Acute respiratory failure with hypoxia; N17.0 Acute kidney failure with tubular necrosis; I25.10 Atherosclerotic heart disease of native coronary artery without angina pectoris; I10 Essential (primary) hypertension; R53.81 Other malaise; R65.20 Severe sepsis without septic shock; F32.9 Major depressive disorder, single episode, unspecified; E78.5 Hyperlipidemia, unspecified; N40.0 Benign prostatic hyperplasia without lower urinary tract symptoms; F03.90 Unspecified dementia, unspecified severity, without behavioral disturbance, psychotic disturbance, mood disturbance, and anxiety; M19.90 Unspecified osteoarthritis, unspecified site; Z79.899 Other long term (current) drug therapy
CPT/HCPCS: 36415; 71045; 80048; 80053; 82140; 82728; 82962; 83615; 83735; 84145; 85007; 85025; 85027; 85379; 85610; 85730; 86140; 87040; 93005; 94640; 94760; 96374; G0378; A9270-GY; J0456; J0696; J1100; J1644; J7040; J7050; J8540; U0003